=== PATIENT | male | born 1945 | race Caucasian/White ===

== ENCOUNTER → 2021-04-29 10:27 | Outpatient (BNVA) | payer MEDICARE, BC, SELFPAY | PROVIDERS: PCP Family Medicine; Referring Provider Family Medicine; Visit Provider Internal Medicine Cardiovascular Disease | DX: I48.21 Permanent atrial fibrillation (principal); I10 Essential (primary) hypertension; Z79.01 Long term (current) use of anticoagulants | CPT/HCPCS: 93005; 99202 ==

== ENCOUNTER 2021-06-15 08:41 | Outpatient (CLI) | payer MEDICARE, BC, SELFPAY ==
[2021-06-16 10:34] LABS: COVID-19 RT-PCR UVMMC Result Negative (Negative)
== END 2021-06-15 08:42 | disposition home or self-care (01) ==
LOC: LBO 08:42
PROVIDERS: PCP Family Medicine; Visit Provider Family Medicine
DX: Z20.822 Contact with and (suspected) exposure to COVID-19 (principal)
CPT/HCPCS: U0003; U0005

== ENCOUNTER 2021-06-28 14:57 | Outpatient (CLI) | payer MEDICARE, BC, SELFPAY ==
--- NOTE | 2021-06-28 14:45 | DI.RAD_ITS ---
Exam(s) XR SHOULDER RT COMPLETE 2+V EXAM: XR SHOULDER RT COMPLETE 2+V CLINICAL HISTORY: right shoulder pain TECHNIQUE: COMPARISON: No exams were available for comparison FINDINGS: Two views were obtained. There is severe loss of the cartilaginous joint space of the glenohumeral j oint. There is marked subchondral sclerosis of the adjacent bones and there are very prominent sheree nal osteophytes, particularly inferiorly. There is flattening of the articular surfaces. There are prominent hypertrophic changes at the acromioclavicular joint. There is a small calcificat ion associated with the distal supraspinatus tendon. IMPRESSION: Severe DJD of the glenohumeral joint RADIATION DOSE DELIVERED: Total DLP
== END 2021-06-28 14:58 | disposition home or self-care (01) ==
LOC: DIORS 14:57
PROVIDERS: PCP Family Medicine; Referring Provider Family Medicine; Visit Provider Student in an Organized Health Care Education/Training Program
DX: M25.511 Pain in right shoulder (principal); M19.011 Primary osteoarthritis, right shoulder; M75.101 Unspecified rotator cuff tear or rupture of right shoulder, not specified as traumatic
CPT/HCPCS: 99204; 99214; 73030

== ENCOUNTER 2021-07-25 13:26 | Outpatient (CLI) | payer MEDICARE, BC, SELFPAY ==
--- NOTE | 2021-07-25 13:15 | DI.RAD_ITS ---
Exam(s) XR HIP RT COMPLETE AP PELVIS EXAM: XR HIP RT COMPLETE AP PELVIS CLINICAL HISTORY: right knee pain. TECHNIQUE: 2D digital imaging was performed. COMPARISON: No exams were available for comparison FINDINGS: AP supine view pelvis and additional lateral the right reveal no evidence of pelvic fracture. Mild d egenerative change in noted in hips, slightly more so on the right side. Lateral view reveals margin al osteophytes right femoral head. Also small bony excrescence off anterior aspect of the femoral ne ck. No osseous lesions. Sacroiliac joints appear unremarkable IMPRESSION: DATA REPOSITORY: RADIATION DOSE DELIVERED:
--- NOTE | 2021-07-25 13:15 | DI.RAD_ITS ---
Exam(s) XR KNEE RT 4V AP,LAT,ZINA,PAT EXAM: XR KNEE RT 4V AP,LAT,ZINA,PAT CLINICAL HISTORY: right knee pain. TECHNIQUE: 2D digital imaging was performed. COMPARISON: No exams were available for comparison FINDINGS: No evidence of acute fracture nor obvious joint effusion. There is moderate narrowing of the medial compartment. Lateral and patellofemoral compartments exhibit. IMPRESSION: Degenerative narrowing of the medial compartment. No joint effusion evident. DATA REPOSITORY: RADIATION DOSE DELIVERED:
== END 2021-07-25 13:27 | disposition home or self-care (01) ==
LOC: DIORS 13:26
PROVIDERS: PCP Family Medicine; Referring Provider Family Medicine; Visit Provider Student in an Organized Health Care Education/Training Program
DX: M25.561 Pain in right knee (principal); M19.011 Primary osteoarthritis, right shoulder; M75.101 Unspecified rotator cuff tear or rupture of right shoulder, not specified as traumatic; M17.11 Unilateral primary osteoarthritis, right knee; M16.11 Unilateral primary osteoarthritis, right hip
CPT/HCPCS: 20610; 73502; 73564; J1040

== ENCOUNTER 2021-08-02 10:36 | Emergency (ER) | payer MEDICARE, BC, SELFPAY ==
[2021-08-02] VITALS (15 sets, daily range): BP systolic 94–134; BP diastolic 63–120; PULSE 60–90; RESP 13–20; TEMP 36.7; O2SAT 97–100
--- NOTE | 2021-08-02 10:30 | RT.EKG_ITS ---
APPROVED REPORT Exam: Resting ECG Reason for Exam: confusion Patient Location: E HR:75 bpm ECG Measurements Heart Rate 75 AXIS MO [id number] P [id number] QRSd 161 QRS -43 QT 379 T -49 QTc 425 Conclusion Atrial fibrillation...V-rate 58- 94, irreg A-activity RBBB and LAFB...QRSd >120mS, axis(-40,240). Afib. RBBB and LAFB. No STEMI. No change from previous EKG. I have reviewed and interpreted ECG and agree with software generated interpretation.
--- NOTE | 2021-08-02 11:29 | DI.RAD_ITS ---
Exam(s) XR CHEST 2V PA LATERAL EXAM: XR CHEST 2V PA LATERAL CLINICAL HISTORY: confusion. TECHNIQUE: 2D digital imaging was performed. COMPARISON: No exams were available for comparison FINDINGS: Heart size is normal. The mediastinum is not widened. Lungs are clear. No infiltrates nor pleural effusions. IMPRESSION: No acute pulmonary findings. DATA REPOSITORY: RADIATION DOSE DELIVERED:
--- NOTE | 2021-08-02 11:45 | DI.MRI_ITS ---
Exam(s) MR BRAIN WO EXAM: MR BRAIN WO CLINICAL HISTORY: confusion, alcoholism, worsening over the past 5 d TECHNIQUE: Multiplanar multisequence MRI of the brain was performed. Images are somewhat degraded by motion artifact. COMPARISON: No exams were available for comparison FINDINGS: CEREBRAL PARENCHYMA: There is no evidence of intracranial hemorrhage, mass effect, or shift of midline structures. There are no extra-axial fluid collections. Ventricles are not enlarged or shifted. Size of the ventricle s is commensurate with the size of the overlying cortical sulci. There is no significant focal signal abnormality in the cerebellar hemispheres nor within the zhou, m idbrain, and thalami. There is mild multifocal signal abnormality in the periventricular white matter, not associated with hemorrhage, surrounding edema, nor abnormal signal on diffusion imaging. There is no significant focal signal abnormality evident on diffusion imaging to suggest acute ischem ic event. No abnormal signal on susceptibility weighted imaging to suggest microhemorrhages. PITUITARY GLAND: No mass nor parasellar abnormality. No obvious abnormality in the cavernous sinuses. FLOW VOIDS: The expected flow void are noted. No evidence of obvious aneurysm nor obvious vascular ma lformation. PARANASAL SINUSES: The visualized paranasal sinuses appear unremarkable. No obvious finding ORBITS: No obvious findings. IMPRESSION: Mild multifocal nonspecific white matter foci which are probably aided chronic ischemic changes. No evidence of acute infarct. No hemorrhage. Involutional change consistent with this patient's age. DATA REPOSITORY:
[2021-08-02 11:48] LABS: Abs Immature Grans 0.29 10^3/uL (0.0-0.06); Absolute Basophil Count 0.06 10^3/uL (0.0-0.2); Absolute Eosinophil Count 0.03 10^3/uL (0.0-0.7); Absolute Lymphocyte Count 1.41 10^3/uL (1.2-3.4); Absolute Monocyte Count 0.67 10^3/uL (0.1-0.8); Absolute Neutrophil Count 4.86 10^3/uL (1.2-6.7); Basophils % 0.8; Eosinophils % 0.4; HCT 45.6 % (40.0-50.0); HGB 15.7 g/dL (13.5-17.5); Lymphocytes % 19.3; MCH 33.8 pg (27.0-33.0); MCHC 34.4 % (32.0-36.0); MCV 98.3 fL (80-95); MPV 9.3 fL (8.0-11.0); Monocytes % 9.2; Neutrophils % 66.3; Nucleated RBC 0 %; Platelet Count 139 10^3/uL (130-400); RBC 4.64 10^6/uL (4.36-5.78); RDW 12.4 % (11.8-14.1); RDW-SD 44.8 fL; WBC 7.32 10^3/uL (4.4-10.8)
[2021-08-02 11:49] LABS: Bilirubin Negative (Negative); Blood Negative (Negative); Clarity Clear (Clear); Glucose Negative (Negative); Ketones Negative (Negative); Leukocyte Esterase Negative (Negative); Nitrite Negative (Negative); Specific Gravity 1.015 (1.005-1.025); pH 6.5 (5-8)
[2021-08-02 11:54] LABS: Ammonia 20 umol/L (11-32)
--- NOTE | 2021-08-02 12:00 | ED.GENADUL_ITS ---
Discharge Plan Disposition Patient Disposition: HOME Condition: Stable Discharge Details Clinical Impression: Impaired cognition Primary Care Provider: Jeyson Alberts ED Provider: Wanda Curtis Home Meds and New Rx's Prescriptions: New baclofen 5 mg tablet 5 mg PO TID Qty: 15 0RF metoclopramide HCl [Reglan] 10 mg tablet 10 mg PO Q6H PRNQty: 10 0RF Continued metoprolol succinate 200 mg tablet extended release 24 hr 200 mg PO QHS 0RF fluticasone propionate 50 mcg/actuation spray,suspension 2 spray intranasal DAILY PRN0RF Rx Instructions: administer into each nostril simvastatin 20 MG tablet 20 mg PO DAILY 0RF ramipril 2.5 MG capsule 2.5 mg PO DAILY 0RF multivitamin 1 EACH capsule 1 ea PO DAILY 0RF albuterol sulfate [ProAir HFA] 8.5 GM HFA aerosol inhaler 2 puff Inhalation DIRECTED 0RF Label Comments: 06/09/14 Pt states only prn. PG baclofen 10 mg tablet 10 mg PO TID PRN0RF Label Comments: TK 1 T PO TID PRN FOR HICCUPS. IF NO EFFECT INCREASE TO 2 TID MAXIUMUM Eliquis 5 MG tablet 5 mg PO BID Qty: 60 0RF Discharge Instructions Additional Instructions: ?Breath holding for 5 to 10 seconds (or as tolerated). ?Performing Valsalva maneuver, holding for five second ?Sipping on or gargling with very cold water. ?Biting into a lemon. ?Pulling on the tongue. ?Swallowing a teaspoon of dry sugar. ?Pressing gently but firmly on the eyeballs. ?While sitting, pulling the knees up to the chest (or leaning forward to compress the chest); hold the position for 30 seconds to one minute if possible. ?Drinking water through a rigid tube with a valve that requires significant suction effort (ie, a forced inspiratory suction and swallow tool [FISST]), which contracts the diaphragm by activating the phrenic nerve, followed by swallowing of water which activates the vagus nerve. The simultaneous activation of the two nerves is believed to be the mechanism responsible for terminating hiccups Please follow-up with Dr. Alberts Take Reglan, 10 mg every 8 hours as needed for hiccups that are uncontrolled with baclofen, you may take 5 to 10 mg every 8 hours as needed for hiccups Stay hydrated Follow-up with your PCP this week and return earlier should you have new or worsening complaints Referrals: Jeyson Alberts [Primary Care Provider] - Discharge Data Discharge Date/Time-TO BE ENTERED AT DEPARTURE: 08/02/21 13:56 Medical Decision Making Patient alert, oriented, of decisional capacity, at baseline mentation per his who is in the room Given patient's past medical history I ordered MRI of the brain which did not show acute abnormality, patient symptoms have been progressive over the past several years worsening in the past week, there is no evidence of obvious acute process on today's evaluation and patient has care with his he feels comfortable discharge home He is instructed to follow-up with his primary care physician in the outpatient setting and to return emergently should he have new or worsening complaints He did reoccurrence of his hip on today's presentation but they were alleviated nicely after some IV Reglan He has baclofen at home, he is supplied with Reglan and baclofen instructed not to take it within 8 hours of each other He will try 1 or 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 but I think these are likely exacerbating his baseline cognitive function Return precautions discussed and patient expressed understanding All conversations had in presence of patient's and patient both are agreeable to follow-up plan with the PCP in the outpatient setting in early return should he have new or worsening complaints There is established with a neurologist at [facility], during her to follow-up with this provider as well He is discharged home in stable condition with stable vitals Medical Records Medical records reviewed: Yes I reviewed the patient's medical records. Lab Data Lab results reviewed: Yes I reviewed the patient's lab results. HPI General Date/Time Provider Initiated Documentation: 08/02/21 10:37 . HPI Narrative: This 76-year-old male with history of atrial fibrillation, mitral regurgitation, impaired cognition, hyperlipidemia, hypertension presents with reports of episode of hallucination 1 week ago and some intermittent confusion over the course of the past several weeks. Denies any head injury. Denies chest pain or shortness of breath. Denies any dizziness or weakness. States that he has been diagnosed with Alzheimer's dementia with a recent diagnosis but not on any new medications. This is complicated by the fact that patient has had recurrence of his hiccups for treatment taking baclofen over the course of the past several days. He states that he has been hiccuping almost 24 hours a day but incidentally notes C cup have resolved upon entering the emergency room. He denies any falls or injuries. He denies palpitations. He denies any additional complaints this time. Denies any fever or chills. Denies dysuria or frequency. Related Data Home Medications Medication Instructions Recorded Confirmed multivitamin 1 ea PO DAILY 11/18/12 08/02/21 ramipril 2.5 mg capsule 2.5 mg PO DAILY 11/18/12 08/02/21 simvastatin 20 mg tablet 20 mg PO DAILY 11/18/12 08/02/21 albuterol sulfate 90 mcg/actuation 2 puff INHALATION DIRECTED 05/22/14 08/02/21 aerosol inhaler (ProAir HFA) apixaban 5 mg tablet (Eliquis) 5 mg PO BID #60 tab 05/02/17 08/02/21 fluticasone propionate 50 2 spray INTRANASAL DAILY PRN 03/24/21 08/02/21 mcg/actuation nasal spray,suspension metoprolol succinate 200 mg 200 mg PO QHS tab 07/21/21 08/02/21 tablet,extended release 24 hr baclofen 10 mg tablet 10 mg PO TID PRN 08/02/21 08/02/21 baclofen 5 mg tablet 5 mg PO TID #15 tab 08/02/21 metoclopramide HCl 10 mg tablet 10 mg PO Q6H PRN #10 tab 08/02/21 (Reglan) Previous Rx's Medication Instructions Recorded apixaban 5 mg tablet (Eliquis) 5 mg PO BID #60 tab 05/02/17 baclofen 5 mg tablet 5 mg PO TID #15 tab 08/02/21 metoclopramide HCl 10 mg tablet 10 mg PO Q6H PRN #10 tab 08/02/21 (Reglan) Allergies Allergy/AdvReac Type Severity Reaction Status Date / Time tree and shrub pollen Allergy Intermediate Verified 08/02/21 10:51 General Stated Complaint: AMS/LOC HEBER: 2 Review of Systems All systems reviewed & are unremarkable except as noted in HPI and below PFSH All Active Problems (Updated 08/02/21 @ 13:50 by LEE Atwood) Arthritis of right hip (Acute) Arthritis of right knee (Acute) Rotator cuff tear, right (Acute) Arthritis of right shoulder region (Acute) Inflammatory disease of liver (Acute) Asthma (Chronic) Afib (Chronic) Mitral regurgitation (Chronic) Impaired cognition (Acute) Leukopenia (Acute) Hyperlipidemia (Acute) HTN (hypertension) with goal to be determined (Acute) Hypothyroidism, unspecified (Chronic) Tinnitus (Acute) Abnormal auditory perception (Acute) Sensorineural hearing loss of both ears (Acute) Medical History History of cardioversion 05/29/17 Malignant tumor of prostate Rectal hemorrhage Surgical History H/O prostatectomy 06/18/2011 Family History Paternal Grandmother Heart disease Paternal Grandfather Heart disease Father Heart disease Alcohol use disorder Alzheimer disease Brother Cancer malignant tumor of testis Social History Smoking/Tobacco Use Status: Never Smoking risk assessment performed?: Yes Alcohol Intake: current Alcohol Intake frequency: 0-2 drinks per day Alcohol type: hard liquor Drug use: Never Household members: spouse Current gender identity: male What is your relationship status?: Panel score (0-1 are the most socially isolated patients): 1 What type of physical activity do you participate in: walking, bicycling and weight lifting Do you feel safe at home: Yes Do you feel safe in your relationship?: Yes Exam Const General: cooperative, comfortable and no acute distress HENMT Head: normal to inspection Other: Moist membranes, uvula midline Eyes Pupils: PERRL Other: Extraocular muscles intact Neck Other: No carotid bruit Resp Effort & Inspection: normal respiratory effort Auscultation: clear to auscultation bilaterally Cardio Rate: regular rate Rhythm: regular rhythm GI Inspection: normal to inspection Skin General skin exam: no rashes or lesions noted Neuro General: patient alert, patient oriented x3 and CN's II-XI intact bilaterally Cranial Nerves: PERRL and tongue midline Cognition: normal cognition Speech: speech normal Gait: normal gait Motor: muscle tone normal throughout, strength 5/5 throughout and no pronator drift Sensory Exam: no sensory deficits noted Other: Negative [id number], negative heel may, negative pronator drift Extrem Other: Ambulatory with steady gait Distal pulses intact Course Vital Signs Vital signs: Vital Signs Temperature 36.7 C 08/02/21 10:44 Pulse 84 08/02/21 10:44 Respiratory Rate 19 08/02/21 10:44 Blood Pressure 110/70 08/02/21 10:44 Pulse Oximetry 97 08/02/21 10:44 Temperature 36.7 C 08/02/21 10:44 Temperature Source Temporal Artery Scan 08/02/21 10:44 Pulse 77 08/02/21 11:46 Pulse 72 08/02/21 11:50 Respiratory Rate 18 08/02/21 11:50 Respiratory Effort Non-Labored 08/02/21 10:58 Respiratory Depth Normal 08/02/21 10:58 Respiratory Pattern Normal 08/02/21 10:58 Blood Pressure 94/63 L 08/02/21 11:46 Blood Pressure Mean 71 08/02/21 11:46 Blood Pressure Position Supine 08/02/21 10:44 Pulse Oximetry 98 08/02/21 11:50 Oxygen Delivery Method Room Air 08/02/21 10:44 Oxygen Flow Rate 0 08/02/21 10:44 Pain Level 0 08/02/21 10:44 Lab/Test Results Lab/Test Results: Laboratory Tests Range/Units 08/02/21 08/02/21 08/02/21 10:55 11:35 11:35 WBC (4.4-10.8) 10^3/uL 7.32 RBC (4.36-5.78) 10^6/uL 4.64 Hgb (13.5-17.5) g/dL 15.7 Hct (40.0-50.0) % 45.6 MCV (80-95) fL 98.3 H MCH (27.0-33.0) pg 33.8 H MCHC (32.0-36.0) % 34.4 RDW (11.8-14.1) % 12.4 Plt Count (130-400) 10^3/uL 139 MPV (8.0-11.0) fL 9.3 Immature Gran % 4.0 Neutrophils % 66.3 Lymphocytes % 19.3 Monocytes % 9.2 Eosinophils % 0.4 Basophils % 0.8 Nucleated RBC % % 0 Absolute Neutrophils (1.2-6.7) 10^3/uL 4.86 Absolute Lymphocytes (1.2-3.4) 10^3/uL 1.41 Absolute Monocytes (0.1-0.8) 10^3/uL 0.67 Absolute Eosinophils (0.0-0.7) 10^3/uL 0.03 Absolute Basophils (0.0-0.2) 10^3/uL 0.06 Ammonia (11-32) umol/L 20 Urine Color (Yellow) Yellow Urine Clarity (Clear) Clear Urine pH (5-8) 6.5 Ur Specific [place] (1.005-1.025) 1.015 Urine Protein (Negative) mg/dL Negative Urine Ketones (Negative) mg/dL Negative Urine Blood (Negative) Negative Urine Nitrite (Negative) Negative Urine Bilirubin (Negative) Negative Urine Urobilinogen (Up TO 0.2) EU/dL 1.0 H Ur Leukocyte Esterase (Negative) Negative Urine Glucose (Negative) mg/dL Negative PAWSS Have you Been Recently Intoxicated or Drunk Within the Last 30 days?: No Have you Ever Experienced Previous Episodes of Alcohol Withdrawal?: No Have you ever Experienced Withdrawal Seizures?: No Have you ever Experienced Delirium Tremens(DT)s?: No Have you ever undergone Alcohol Rehabilitation Treatment (i.e, inpt ot outpatient treatment programs)?: No Have you ever Experienced Blackouts?: No Have you ever Combined Alcohol with other Downers within the last 90 days?: No Have you ever Combined Alcohol with any other Substance of Abuse during the last 90 days?: No Positive Blood Alcohol level on Presentation? [PCS.BAL]: No Evidence of Increased Autonomic Activity (i.e. HR>120, tremor, sweating, agitation, nausea)?: No Result: 0
[2021-08-02 12:12] LABS: ALT 26 U/L (16-63); AST 16 U/L (15-37); Albumin 4.3 g/dL (3.4-5.0); Alkaline Phosphatase 48 U/L (46-116); BUN 21 mg/dL (7-18); Bilirubin, Total 1.8 mg/dL (0.2-1.0); Calcium 8.9 mg/dL (8.5-10.1); Chloride 103 mmol/L (98-107); Glucose 116 mg/dL (74-106); Magnesium 2.3 mg/dL (1.8-2.4); Potassium 3.9 mmol/L (3.5-5.1); Sodium 140 mmol/L (136-145); TSH (W/Ref FT4) 2.88 uIU/mL (0.36-3.74); Total Protein 6.9 g/dL (6.4-8.2); Troponin I < 50 ng/L (<or=60)
[2021-08-02] MEDS: Metoclopramide 10 MG/2 ML VIAL 5 MG IVP (13:04)
--- NOTE | 2021-08-03 11:37 | NUR.NOTE ---
Nursing Note: Prescriptions called in to [facility]. Wanda Curtis aware. Jany Joseph
== END 2021-08-02 13:56 | disposition home or self-care (01) ==
PROVIDERS: Emergency Provider Physician Assistant; PCP Family Medicine
DX: R41.81 Age-related cognitive decline (principal); R06.6 Hiccough; R41.0 Disorientation, unspecified; F10.20 Alcohol dependence, uncomplicated
CPT/HCPCS: 36415; 80053; 93005; 96374; 99285; 70551; 71046; 81003; 82140; 83735; 84443; 84484; 85025; 93010; 99284; J2765

== ENCOUNTER 2021-08-26 03:06 | Outpatient (CLI) | payer MEDICARE, BC, SELFPAY ==
--- NOTE | 2021-08-26 07:45 | DI.CT_ITS ---
Exam(s) CT UPPER EXTREMITY RT WO EXAM: CT UPPER EXTREMITY RT WO CLINICAL HISTORY: Surgery planning,arthritis rt glenohumeral joint,m19.011 TECHNIQUE: Imaging Protocol: Axial computed tomography images with coronal and sagittal reformatted images were created and reviewed. CONTRAST MATERIAL: None COMPARISON: CR XR SHOULDER RT COMPLETE 2+V from 06/28/2021 FINDINGS: OSSEOUS: There are advanced osteoarthritic degenerative changes in the right glenohumeral joint inclu ding advanced narrowing of the joint space and a barrow-type osteophyte on the inferior articular surf connie of the humeral head. Also osteophyte and degenerative subarticular cysts in the osseous glenoid. There is partial dehiscence of anterior cortex of the osseous glenoid at the level of the dominant degenerative subarticular cyst at this level which measures approximately 9 x 8 millimeters. This do es not have the appearance of an ominous osseous lesion. Coracoid process unremarkable. There is a 4 x 3 millimeter osteophytic density a immediately above the greater tuberosity of the hum eral head consistent with calcific tendinitis-bursitis. There are only mild degenerative changes in the AC joint although there does appear to be some downgoing bone on the clavicular side of this join t causing some impingement. No evidence of os acromiale. There is a small joint effusion. This ext ends into the subcoracoid region intimately related to the subscapularis. There are no obvious loose intra-articular bodies in the inferior recess nor elsewhere in the numeral joint space. Adjacent right lung: No significant nodules demonstrate. IMPRESSION: Advanced osteoarthritic degenerative changes in right shoulder glenohumeral joint, as described above . RADIATION DOSE DELIVERED: 676.47mGy.cm Total DLP DATA REPOSITORY: All CT scans at this facility are submitted to the National Radiology Data Registry (NRDR) Dose Index Registry (DIR) with the [employer] ([employer]). RADIATION OPTIMIZATION: All CT scans at this facility use at least one of these dose optimization te chniques: automated exposure control; mA and/or kV adjustment per patient size (includes targeted exa ms where dose is matched to clinical indication); or iterative reconstruction.
== END 2021-08-26 03:26 ==
PROVIDERS: PCP Family Medicine; Visit Provider Student in an Organized Health Care Education/Training Program
DX: M19.011 Primary osteoarthritis, right shoulder (principal)
CPT/HCPCS: 73200

== ENCOUNTER → 2021-08-30 14:46 | Outpatient (BNVA) | payer MEDICARE, BC, SELFPAY | PROVIDERS: PCP Family Medicine; Referring Provider Family Medicine; Visit Provider Student in an Organized Health Care Education/Training Program | DX: M75.101 Unspecified rotator cuff tear or rupture of right shoulder, not specified as traumatic (principal); M19.011 Primary osteoarthritis, right shoulder | CPT/HCPCS: 99214 ==

== ENCOUNTER 2021-09-07 01:18 | Outpatient (CLI) | payer MEDICARE, BC, SELFPAY ==
--- NOTE | 2021-09-07 09:07 | DI.CT_ITS ---
Exam(s) CT ABDOMEN PELVIS WO/W EXAM: CT ABDOMEN PELVIS WO/W CLINICAL HISTORY: MICROSCOPIC HEMATURIA, R31.29, HX STONES/BLADDER ULCERATION. TECHNIQUE: Imaging Protocol: Axial computed tomography images with coronal and sagittal reformatted images were created and reviewed CONTRAST MATERIAL: Intravenous: Omnipaque 100cc Oral: None COMPARISON: CT ABD PELVIS WITH CONTRAST from 09/08/2010 FINDINGS: VISUALIZED LUNG BASES: No nodules nor pleural effusions evident. ABDOMEN: There is no ascites. LIVER: There are no ominous focal hepatic lesions evident. Tiny 3 millimeters cyst is noted in the r ight hepatic lobe. No dilatation of intrahepatic ducts. GALLBLADDER/BILIARY: No obvious gallbladder pathology. CBD is not dilated. PANCREAS: No evidence of pancreatic mass nor dilatation of the pancreatic duct. SPLEEN: Spleen size upper normal. No intrasplenic lesions. Splenic and portal veins are patent. ADRENALS: There are no significant adrenal masses. KIDNEYS:There are multiple calculi noted in both kidneys.. These all measure less than 6 millimeters size. No staghorn calculus. There is a single ureter on each side. No calculi evident in the uret ers nor within the urinary bladder. Small sub cm cyst in the lateral cortex of the right kidney. No solid renal masses.. ABDOMINAL AORTA: Abdominal aorta is not enlarged. LYMPH NODES:There is no retroperitoneal nor paraaortic adenopathy. ABDOMINAL WALL: No evidence of significant anterior abdominal wall nor inguinal hernia. GI: There is extensive diverticulosis of the colon. There is very extensive diverticulosis of the si gmoid. No obvious acute diverticulitis. PELVIS: GI: No evidence of appendicitis.Extensive sigmoid diverticulosis. LYMPH NODES: There is no intrapelvic nor inguinal adenopathy. REPRODUCTIVE: Prostate is small and possibly surgically absent (no clips). Seminal vesicles unremark able. URINARY BLADDER: No calculi nor obvious masses evident OSSEOUS: No osseous lesions. No fractures. Advanced disc space narrowing L2-3 level. IMPRESSION: 1. There are numerous small calculi in both kidneys. There are no calculi in the solitary bilateral ureters nor within the urinary bladder and no evidence of obvious bladder mass. 2. Prostate is either smaller surgically absent (there are no surgical clips). 3. Extensive colonic diverticulosis throughout the colon, most extensive in the sigmoid. Although th ere is no obvious acute diverticulitis, please note that given the extensive involvement a subtle wendy e of diverticulitis can be potentially missed. 4. RADIATION DOSE DELIVERED: 1,813.31mGy.cm Total DLP DATA REPOSITORY: All CT scans at this facility are submitted to the National Radiology Data Registry (NRDR) Dose Index Registry (DIR) with the [employer] ([employer]). RADIATION OPTIMIZATION: All CT scans at this facility use at least one of these dose optimization te chniques: automated exposure control; mA and/or kV adjustment per patient size (includes targeted exa ms where dose is matched to clinical indication); or iterative reconstruction.
[2021-09-07] MEDS: Omnipaque 350 MG/ML 100 ML BTL IJ (09:28)
== END 2021-09-07 01:38 ==
PROVIDERS: PCP Family Medicine; Visit Provider Urology
DX: R31.29 Other microscopic hematuria (principal); N20.0 Calculus of kidney; K57.30 Diverticulosis of large intestine without perforation or abscess without bleeding
CPT/HCPCS: 74178; J3490

== ENCOUNTER → 2021-11-01 10:04 | Outpatient (BNVA) | payer MEDICARE, BC, SELFPAY | PROVIDERS: PCP Family Medicine; Referring Provider Family Medicine; Visit Provider Student in an Organized Health Care Education/Training Program | DX: M75.101 Unspecified rotator cuff tear or rupture of right shoulder, not specified as traumatic (principal) | CPT/HCPCS: 99214 ==

== ENCOUNTER → 2021-12-14 09:00 | Outpatient (BNVA) | payer MEDICARE, BC, SELFPAY | PROVIDERS: PCP Family Medicine; Referring Provider Family Medicine; Visit Provider Physician Assistant | DX: Z01.818 Encounter for other preprocedural examination (principal); M75.101 Unspecified rotator cuff tear or rupture of right shoulder, not specified as traumatic ==

== ENCOUNTER 2021-12-20 02:54 | Outpatient (CLI) | payer MEDICARE, BC, SELFPAY ==
[2021-12-20 11:24] LABS: Source Nasal/Nares
[2021-12-20 16:45] LABS: COVID-19 PCR Negative (Negative)
== END 2021-12-20 02:55 | disposition home or self-care (01) ==
LOC: LBO 02:54
PROVIDERS: PCP Family Medicine; Visit Provider Student in an Organized Health Care Education/Training Program
DX: Z20.822 Contact with and (suspected) exposure to COVID-19 (principal); Z01.818 Encounter for other preprocedural examination
CPT/HCPCS: 87635

== ENCOUNTER → 2021-12-22 02:18 | Outpatient (CLI) | payer MEDICARE, BC, SELFPAY ==
--- NOTE | 2021-12-22 07:30 | DI.US_ITS ---
APPROVED REPORT EXAM: Comprehensive 2D, Doppler, and color-flow Echocardiogram Patient Location: Out-Patient Nail Artist: Judit Brown RDCS (AE) Indications: Tricuspid regurgitation Other Information Study Quality: Adequate. Technically limited study due to body habitus. Conclusion Normal left ventricular wall thickness and chamber size. Estimated ejection fraction is 40%. There is moderate global hypokinesis Right ventricle is moderately dilated. The right atrium is moderately dilated. Left atrial size is normal The aortic valve is trileaflet and mildly sclerotic with trace regurgitation Normal mitral valve with moderate regurgitation Normal tricuspid valve with moderate to severe regurgitation. Estimated right ventricular systolic p ressure is 31 mmHg Normal pulmonic valve with mild to moderate regurgitation Mildly dilated ascending aorta measuring 3.52 cm Wall motion Left Ventricle The left ventricle is normal size. Left ventricular systolic function is moderately decreased. There is normal left ventricular wall thickness. There is global hypokinesis of the left ventricle. There i s no ventricular septal defect visualized. LVEF is 40%. Right Ventricle Right ventricle is moderately dilated. Right ventricular systolic function is grossly normal. The RVS P is 30.9 mmHg. Atria The left atrium size is normal. Right atrium is moderately dilated. The interatrial septum is intact with no evidence for an atrial septal defect. Aortic Valve The Aortic valve is mildly sclerotic. Aortic valve is trileaflet. There is no aortic valvular stenosi s. Trace aortic regurgitation. Mitral Valve The mitral valve is normal in structure. No evidence of mitral valve stenosis. Moderate mitral regurg itation. Tricuspid Valve The tricuspid valve is normal in structure. There is no tricuspid valve stenosis. Moderate to severe tricuspid regurgitation. Pulmonic Valve The pulmonary valve is normal in structure. There is no pulmonic valvular stenosis. Mild to moderate pulmonic regurgitation. Great Vessels The aortic root is normal in size. The ascending aorta is mildly dilated. Aortic arch is not well vis ualized. IVC is normal in size and collapses >50% with inspiration. Pericardium Trace pericardial effusion. 2D Dimensions IVSD d PLAX 0.83 cm M: 0.6-1.2 LV Vol A2C d MOD 76.4 mL LVPW d PLAX 0.88 cm M: 0.6 - 1.2 LV Vol A4C d MOD 84.9 mL LVID d PLAX 5.34 cm M: 4.2 - 5.8 LA vol/ BSA A2C s A-L 21.0 mL/m2 LVDs 4.40 cm M: 2.5 - 4.0 LA vol/ BSA A4C s A-L 36.0 mL/m2 Ao Root d 3.15 cm M: 3.1 - 3.7 LA Vol/ BSA Biplane s A-L 32.1 mL/m2 RA Area A4C 20.77 cm2 LA Area A4C s MOD 22.18 cm2 RA Vol/ BSA A4C s A-L 36.5 mL/m2 LA Area A2C s MOD 14.50 cm2 Ao Asc Diam d 3.52 cm M: 2.6 - 3.4 LV EF A4C MOD 38.4 % LV EF Teichholz 35.4 % LV EF A2C MOD 40.4 % LVEF (Bagley's) 37.67 % M: 52 - 72 LV EF Biplane MOD 37.7 % LV Volume 63.53 mL M: 62 - 150 SV 30.55 mL LV Volume Index 36.09 mL/m2 M: 34 - 74 SV Index 17.32 mL/m2 LV Vol Biplane MOD 81.1 mL FS 17.10 % M-Mode TAPSE 1.65 cm (M/F) >1.7 LV Diastology MV E' medial 0.055 (>0.07 m/s) MV E Vmax 0.73 (0.4-1.3 m/s) LV E/e MED 13.15 (<14) MV E' lateral 0.106 (>0.1 m/s) LV E/e LAT 6.85 (<14) MV E/E' medial 13.18 MV E/E' lateral 6.89 Aortic Valve LVOT Area 3.65 cm2 AoV Area Vmax 2.44 cm2 LVOT Vmax 0.73 m/s AoV Area/ BSA (Vmax) 1.38 cm2/m2 LVOT Mean Dawson. 0.47 m/s BRIAN Mean Dawson. 2.23 cm2 LVOT Peak Grad 2.1 mmHg BRIAN Mean Dawson. Index 1.26 cm2/m2 LVOT Mean Grad 1.0 mmHg LVOT VTI 0.123 m LVOT Diam s 2.15 cm AoV Vmax 1.09 m/s Velocity Ratio 0.66 AoV Mean Dawson. 0.77 m/s AoV Peak Grad 4.7 mmHg LVOT SV 44.77 mL AoV Mean Grad 2.6 mmHg AoV VTI 0.201 m AoV Area VTI 2.23 cm2 AoV Area/ BSA (VTI) 1.27 cm/m2 Mitral Valve MV DT 187 (160-240 msec) MR Vmax 4.60 m/s MV PHT 54 msec MR VTI 1.456 m MV Area PHT 4.06 cm2 MR Peak Grad 84.5 mmHg MV VTI 0.234 m MR Mean Grad 53.4 mmHg MV VTI Annulus 0.248 m MR PISA Radius 0.47 cm MV Area VTI 2.05 (4.0-6.0 cm2) MR EROA 0.11 cm2 MR Aliasing Velocity 0.35 m/s MR PISA 1.41 cm2 Pulmonary Valve PV Vmax 0.66 (0.5-1.5 m/s) RVOT Peak Gr. 1.10 mmHg PV Peak Grad 1.8 mmHg RVOT Mean Gr. 0.50 mmHg PV Mean Grad 1.0 mmHg RVOT VTI 0.112 m PV VTI 0.139 m RVOT Vmax 0.53 m/s Tricuspid Valve TR Peak Grad 27.8 mmHg TR Vmax 2.64 m/s RA Pressure 3.00 mmHg RVSP (TR) 30.9 mmHg
== END ==
PROVIDERS: PCP Family Medicine; Visit Provider Student in an Organized Health Care Education/Training Program
DX: I07.1 Rheumatic tricuspid insufficiency (principal)
CPT/HCPCS: 93306

== ENCOUNTER 2021-12-22 11:07 | Inpatient (IN) | payer MEDICARE, BC, SELFPAY ==
[2021-12-22] VITALS (16 sets, daily range): BP systolic 76–145; BP diastolic 47–104; PULSE 55–101; RESP 12–22; TEMP 34.6–36.7; O2SAT 95–100; BMI 22.9
--- NOTE | 2021-12-22 12:30 | W.ANESPRE ---
General Info Date of Service Date Performed: 12/22/21 Height: 5 ft 7 in Weight: 66.4 kg Body Mass Index (BMI): 22.9 Surgical Procedure: Operation Date: 12/22/21 13:40 Proposed Procedure Side Surgeon p Reverse Shoulder Total Arthroplasty, Bicep Tenodesis and any other indicated procedures Right Praful Duenas MD Meds Allergies and Home Medications Allergies Allergy/AdvReac Type Severity Reaction Status Date / Time tree and shrub pollen Allergy Intermediate Verified 12/22/21 11:59 Home Medication Medication Instructions Recorded multivitamin 1 ea PO DAILY 11/18/12 ramipril 2.5 mg capsule 2.5 mg PO DAILY 11/18/12 simvastatin 20 mg tablet 20 mg PO DAILY 11/18/12 albuterol sulfate 90 mcg/actuation 2 puff inhalation DIRECTED 05/22/14 aerosol inhaler (ProAir HFA) apixaban 5 mg tablet (Eliquis) 5 mg PO BID #60 tabs 05/02/17 fluticasone propionate 50 2 spray intranasal DAILY PRN 03/24/21 mcg/actuation nasal spray,suspension metoprolol succinate 200 mg 100 mg PO BID 12/14/21 tablet,extended release 24 hr PFSH Active Problems Active Problems: Problem Status Onset Code Arthritis of right hip M16.11 Arthritis of right knee M17.11 Rotator cuff tear, right M75.101 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 Impaired cognition R41.89 Medical History Medical History Abnormal auditory perception Afib Asthma History of cardioversion 05/29/17 HTN (hypertension) with goal to be determined Hyperlipidemia Hypothyroidism, unspecified Inflammatory disease of liver Leukopenia Malignant tumor of prostate Mitral regurgitation Rectal hemorrhage Sensorineural hearing loss of both ears Tinnitus Surgical History Surgical History H/O prostatectomy 06/18/2011 Status post colonoscopy Status post endoscopy Status post eye surgery No further details provided Status post tonsillectomy Tobacco Smoking/Tobacco Use Status: Never Alcohol Alcohol Intake: current Alcohol intake frequency: 0-2 drinks per day Alcohol type: hard liquor Substance Use Substance use: Never Substance use type: does not use Vital Signs and Lab Results Vital Signs Most Recent Vital Signs in EMR: Most Recent Vital Signs Temp Pulse Resp BP Pulse Ox 36.4 C L 84 16 120/95 H 98 12/22/21 12:14 12/22/21 12:14 12/22/21 12:14 12/22/21 12:14 12/22/21 12:14 Lab Results Blood Type / Crossmatch: No Data to Display Complete Blood Count: No Data to Display Complete Metabolic Panel: No Data to Display Liver Function Panel: No Data to Display Coagulation Panel: No Data to Display Cardiac Panel: No Data to Display Arterial Blood Gas: No Data to Display Venous Blood Gas: No Data to Display Pancreas Panel: No Data to Display Thyroid Panel: No Data to Display Infectious Disease: Coronavirus (COVID-19)(PCR) Negative (Negative) 12/20/21 10:08 Coronavirus 2019 Source Nasal/Nares 12/20/21 10:08 Blood Cultures: No Data to Display Toxicology Panel: No Data to Display Anesthesia Assessment and Plan Anesthesia History Personal History: No History of Anesthesia Complications Family History: No Family History of Anesthesia Complications Exercise Tolerance Exercise Tolerance: Metabolic Equivalents>4 Pertinent Negatives Pertinent Negatives: No Symptoms of GERD, No Major Cardiovascular Symptoms or Complaints (Atrial fibrillation, TR) and No Major Pulmonary Symptoms or Complaints Cardiac & Pulmonary Exam Cardiac Exam: Other (Irregular ) Pulmonary Exam: Clear Bilateral Breath Sounds Implantable Cardiac Device Does patient have a Pacemaker or an ICD?: No Airway Exam Known Difficult Airway: No Mallampati Class: 1 Mouth Opening: Normal (> 3cm) Thyromental Distance: Greater than 3 cm Facial Hair: Full Engel Neck Range of Motion: Full ROM Neck Circumference: Normal Teeth Condition: Normal Dentition Airway Comments: Top front tooth broken left back top broken ASA Classification ASA Score: ASA 2 Emergency Case?: No NPO Status NPO Status: NPO Clears >2 hours, Solids >8 hours Anesthesia Plan Resuscitation Status: Full Code Anesthesia Technique: General Anesthesia Airway Planned: Endotracheal Tube Pain Management: Surgeon and patient request nerve block Monitors Used: Standard Monitors
--- NOTE | 2021-12-22 12:45 | DI.RAD_ITS ---
Exam(s) XR SHOULDER RT COMPLETE 2+V EXAM: XR SHOULDER RT COMPLETE 2+V CLINICAL HISTORY: Portable in PACU postop. TECHNIQUE: 2D digital imaging was performed. COMPARISON: CR XR SHOULDER RT COMPLETE 2+V from 06/28/2021 FINDINGS: 3 views Postop reveal satisfactory position alignment components of the newly placed reverse prosthesis right shoulder. Nor loosening. IMPRESSION: DATA REPOSITORY: RADIATION DOSE DELIVERED:
[2021-12-22] MEDS: Lactated Ringers 1,000 ML 100 ML IV ×3 (12:50→18:18)
[2021-12-22] MEDS: ceFAZolin 2 GM/50 ML BAG IVPB (12:50)
[2021-12-22] MEDS: Bupivacaine 0.5% Pres-Free W/EPI 10 ML VIAL (13:52)
--- NOTE | 2021-12-22 14:01 | W.ANESNERVE ---
Nerve Block Single Injection Procedure Date and Time Date Performed: 12/22/21 Procedure Start: 12:40 Location Where Procedure Performed Procedure Location: Day Surgery Unit Reason Performed: Postoperative Analgesia Requesting Provider: Praful Duenas Timeout Performed Timeout Performed: Yes Monitoring Used ECG, Blood Pressure and SpO2 Sterility Sterility: Hand Hygiene, Surgical Cap, Surgical Mask, Sterile Gloves, Eye Protection and Chlorhexidine Sedation Given During Procedure Sedation Given (Indicate Dose Given): Versed IV Dose:: 2 mg Patient Mental Status Patient Mental Status: Sedate with meaningful communication Nerve Block 1st Nerve Block: Laterality: Right Block Type: Interscalene Needle / Catheter Used: 100mm SonoPlex II Local Anesthetic Bolus (Indicate Dose Given): Lidocaine used for local infiltration of skin, Injected in 3-5ml increments after negative blood aspiration, Bupivacaine 0.5% Dose:: 10 cc and Exparel Dose:: 10cc Additives (Indicate Dose Given): None Ultrasound: Sterile probe cover and gel used Ultrasound Image Saved?: Yes Nerve Stimulator: Not Used Paresthesia: None Post Procedure Pain score (0-10): 0 Procedure Tolerated: No Complications and Patient tolerated well Procedure Outcome: Successful Performed By: Jeyson Monteiro
--- NOTE | 2021-12-22 17:38 | ROE_ITS ---
Date of service: 12/22/21 Time of Service: 15:00 Operative Note Operative Note DATE OF PROCEDURE: 12/22/21 PRE-OP DIAGNOSIS: Right: 1. End-stage glenohumeral arthritis 2. Long head of the biceps tendinopathy POST-OP DIAGNOSIS: same PROCEDURE: Right: 1. Reverse total shoulder arthroplasty, CPT # 462[address] 2. Open biceps tenodesis, CPT # 71692 The regional administrative assistant was medically required as this procedure involves retraction, protection of neurovascular structures, and manipulation of multiple instruments and implants at the same time, which cannot be done without a skilled regional administrative assistant. SURGEON: Praful Duenas SENIOR LEAD DEVELOPER: Meredith Riley ANESTHESIA TYPE: Local By Surgeon, General LMA/ETT and Primary Nerve Block Refer to Anesthesia Record ESTIMATED BLOOD LOSS: 150 COMPLICATIONS: None Patient was transported to: PACU Implants: [employer] modular glenoid system baseplate 24 mm, 10 degree full augment [employer] modular glenoid system central post 25 mm [employer] modular glenoid system peripheral locking screws 20 mm inferior, 36 mm superior, 20 mm posterior, 24 mm anterior [employer] modular glenoid system glenosphere 42 +4 mm lateralized [employer] humeral stem 135 degrees size 8 [employer] suture cup size 39 neutral [employer] humeral insert size 39 +6 / 42 mm combo insert Indications: Please see complete medical record for details. Findings: Significant long head biceps tenosynovitis and glenohumeral arthritis. Largely intact rotator cuff. Procedure Description: In the operating room, general anesthesia was induced. The patient was positioned beachchair on the operating room table. All bony prominences were well-padded. Preoperative antibiotics were administered. The shoulder was prepped and draped in the usual sterile fashion for shoulder arthroplasty. The correct patient, procedure, and side of the procedure were all verified prior to incision. The deltopectoral approach was taken to the anterior shoulder. Care was taken to bluntly dissect the interval between the deltoid and pectoralis major muscles. No major cephalic vein was identified, but the usual location and fat stripe was used for the approach. Subdeltoid space and conjoined tendon were freed of adhesions. The long head of the biceps tendon was identified just lateral to the lesser tuberosity. The uppermost margin of the pectoralis major tendon was released from the proximal humerus. The long head of the biceps tendon was tenodesed in situ using SutureTape in a [id number] fashion securing it superior margin the pectoralis major tendon. The biceps tendon was amputated and followed proximally to identify the rotator interval. A subscapularis peel was performed taking care to release the entire tendon in a full-thickness fashion from superior to inferior and lateral to medial while bringing the arm gradually into external rotation. Care was taken to avoid the axillary nerve by only working on the bone inferiorly and medially. The subscapularis was tagged using SutureTape in a Bakari-Jorge fashion and traction used confirm appropriate mobilization of the subscapularis tendon after gentle blunt dissection was used to free it up. The supraspinatus and infraspinatus were identified and left intact. Appropriate coagulation was achieved especially interiorly. The surgical neck was cut using an oscillating saw with the humeral head bone brought back table in case there was a need for future bone grafting. The proximal humeral protection plate was used to provisionally confirm suture cup and glenosphere size. Attention was then turned to the glenoid and retractors were placed and a circumferential release performed using the long head of the biceps remnant to remove soft tissue about the glenoid rim. Care was taken inferiorly to work on bone only between 5 and 7:00 o'clock and bluntly elevate tissues inferiorly. The VIP guide was placed on the glenoid and used to confirm placement and trajectory of the central guidepin. The guidepin was inserted and advanced just through the far cortex ensuring adequate central post length. Depth gauge was used to confirm length. The glenosphere sizer was used to confirm positioning and glenosphere size. The helicopter pilot instructor drill followed by eccentric reamer were used to appropriately prepare for the baseplate. The 25 mm central screw drill used. The augmented baseplate was impacted and fully compressed onto the glenoid surface with impressive post fixation strength. The locking guide was then used to drill and place appropriately lengthed inferior, superior, anterior, and posterior screws. The [id number] reamer was used to confirm adequate peripheral reaming. The glenosphere was applied with the horologist apprentice and then impacted to engage the Reddy taper. It was then locked with appropriate countersinking of the setscrew. The glenosphere was inspected and found to have good fit, appropriate positioning, and no soft tissue or bony impingement. Attention was then turned back to the proximal humerus, which was delivered from the wound and maintained in external rotation. Reamers were started appropriately posterior to the bicipital groove taking care to maintain in line approach with the humeral canal. Sequential reaming was done from size 5 up to size 8. Next, the broaches were sequentially used to open the proximal humerus starting with a size 5 and going up to size 8 and sunk to the appropriate depth while maintaining approximately 30 degrees retroversion. There was good metaphyseal fit and rotational control of the proximal humerus with this size. The neutral offset guide was used to ream for the undersized suture cup, which better preserved proximal humeral bone and was desired given intact rotator cuff and planned subscapularis repair. The humeral trial cup was connected. Trialing was commenced with +3 mm liner. The shoulder was reduced and taken through range of motion. Trial components were built up to +6 mm liner to achieve good stability and appropriate tension on the deltoid and conjoined tension. The trial components were removed from the proximal humerus. The wound was copiously irrigated with normal saline. A 2 mm drill was used to drill 2 drill holes in the bicipital groove for later subscapularis repair. The the proximal humeral stem and suture cup were assembled and brought over the proximal humerus. Suture tapes were placed superiorly inferiorly at the medial and lateral aspect of the suture cup. The lateral tapes were brought out the drill holes. A small amount of vancomycin powder was distributed in the proximal humerus. The humeral component and suture cup were impacted into place. The trial liner was added, and the shoulder was reduced and range of motion, stability, and tension confirmed to be appropriate. The final liner was then connected, and range of motion, stability, and tension confirmed. The shoulder was copiously irrigated with Betadine and normal saline. The arm was placed in about 30 degrees of external rotation. The subscapularis was reduced and repaired using the KodyTaaditya in a speed bridge type configuration. The arm was taken into more external rotation without any displacement of the subscapularis repair. The deltopectoral interval was well approximated. Subcutaneous tissue was irrigated then closed using 2-0 Monocryl in a buried interrupted fashion. Skin was closed using 3-0 Monocryl in a buried subcuticular fashion. Skin glue was applied to the incision. A silver impregnated bandage was placed over the incision. The extremity was placed into a shoulder immobilizer. The patient awoke from anesthesia without complication and was taken to the recovery room in stable condition.
--- NOTE | 2021-12-22 17:40 | W.ANESPOSTOP ---
Postoperative Evaluation Date, Time and Location Date Performed: 12/22/21 Time Performed: 17:40 Patient Location: PACU Vital Signs Most Recent Imported Vital Signs: Most Recent Vital Signs Temp Pulse Resp BP Pulse Ox 36.3 C L 88 12 104/47 L 99 12/22/21 17:35 12/22/21 17:35 12/22/21 17:35 12/22/21 17:35 12/22/21 17:35 Pain Score Most Recent Pain Score: Most Recent Pain Score Pain Level 0 12/22/21 12:40 Assessment Mental Status: Awake (Alert & Oriented to Patient Baseline) Airway and Respiratory Function: Patent airway with normal (patient baseline) respiratory exam Cardiovascular Function: Hemodynamically Stable Hydration Status: Adequately Hydrated Nausea & Vomiting: No Nausea or Vomiting Pain: Pain is tolerable per patient Peripheral Nerve Block: Regional nerve block not resolved at time of post operative discharge
--- NOTE | 2021-12-22 17:58 | W.PM.PROGNOT ---
Date of Service Date of service: 12/22/21 Time of Service: 17:56 Assessment and Plan Assessment and plan (1) Arthritis of right shoulder region: Status: Acute Assessment and plan: 76-year-old male postop day #0 status post right reverse total shoulder arthroplasty with biceps tenodesis Complete 24 hours postoperative antibiotics Void trial. If unable to void, place arce and discontinue catheter AM postop day #1 Pain control-Multimodal as ordered. Physical therapy and Occupational Therapy ordered: Reverse TSA protocol. Should remove sling while in bed or resting. Recommend sling when ambulatory or out of home. Passive range of motion to the shoulder. Active range of motion elbow, wrist, and hand. May use upper extremity gently for all essential ADLs including active range of motion within a limited arc with light weightbearing. Continue mechanical DVT prophylaxis with SCDs and/or BEATRIZ hose Resume home dose Eliquis tomorrow 24 hours post procedure Plan on discharge home later tonight or tomorrow depending on patient's comfort, mental status, and hemodynamic stability. Subjective Subjective Interval history since last seen: No complaints Exam Narrative Exam Narrative: Resting comfortably in PACU. No distress. Breathing nonlabored. 2+ right radial pulse. Irregular rhythm. Regular rate. Right shoulder bandage clean, dry, and intact. No significant edema or ecchymosis. Motor or sensory exam limited by nerve block in place Objective Last Vital Signs Temp 97.3 F L 12/22/21 17:35 Pulse 88 12/22/21 17:35 Resp 12 12/22/21 17:35 BP 104/47 L 12/22/21 17:35 Pulse Ox 99 12/22/21 17:35
[2021-12-22] MEDS: ceFAZolin 1 GM/50 ML BAG IVPB (20:06)
[2021-12-22] MEDS: Metoprolol CR 100 MG TABCR PO (20:07)
[2021-12-23] MEDS: Acetaminophen 500 MG TAB 1000 MG PO ×2 (00:01→08:44)
[2021-12-23] MEDS: Normal Saline Flush 10 ML SYR IV (00:07)
[2021-12-23 03:30] VITALS: BP 114/76; PULSE 100; RESP 16; TEMP 37.2; O2SAT 100
[2021-12-23] MEDS: oxyCODONE 5 MG TAB PO (04:19)
[2021-12-23] MEDS: Normal Saline Flush 10 ML SYR IVP (04:19)
[2021-12-23] MEDS: ceFAZolin 1 GM/50 ML BAG IVPB (04:19)
--- NOTE | 2021-12-23 07:13 | W.PM.DS.N ---
Date of service: 12/23/21 Time of Service: 07:10 DS: Diagnosis Discharge Diagnosis (1) Arthritis of right shoulder region: Status: Acute Discharge Plan Disposition Patient Disposition: HOME Condition: Stable Discharge Details Reason For Visit: Right shoulder surgery Admit Date/Time: 12/22/21 11:07 Admit Provider: Praful Duenas Attending Provider: Praful Duenas Primary Care Provider: Jeyson Alberts Hospital Course Hospital Course: Right Reverse TSA 12/22/21 Home Meds and New Rx's Prescriptions: New oxycodone 5 mg tablet 5 - 10 mg PO Q4H MDD 30 mg PRN (Reason: moderate to severe pain) Qty: 18 0RF Continued metoprolol succinate 200 mg tablet extended release 24 hr 100 mg PO BID fluticasone propionate 50 mcg/actuation spray,suspension 2 spray intranasal DAILY PRN Rx Instructions: administer into each nostril simvastatin 20 MG tablet 20 mg PO DAILY ramipril 2.5 MG capsule 2.5 mg PO DAILY multivitamin 1 EACH capsule 1 ea PO DAILY albuterol sulfate [ProAir HFA] 8.5 GM HFA aerosol inhaler 2 puff Inhalation DIRECTED Label Comments: 06/09/14 Pt states only prn. PG Eliquis 5 MG tablet 5 mg PO BID Qty: 60 0RF Discharge Instructions Additional Instructions: Surgery: Right reverse total shoulder arthroplasty with biceps tenodesis Activity: Do not lift anything heavier than a coffee. You should keep your arm at your side in a neutral position at all times except for gentle range of motion exercises, physical therapy, and essential activities. You should use the sling whenever you are out of the house. You may have to adjust the abduction pillow or remove it for comfort. At home it is best to remove the sling and rest the arm on a pillow at your side or support the operative side with your other hand. A physical therapy prescription will be sent electronically to start in 2-3 weeks. Reverse TSA Protocol: Postoperative Weeks 0-6 ?Immobilization: Sling may be removed for therapeutic exercises, resting in bed or chair, and bathing ?Motion exercises: Pendulum exercises, elbow range- of-motion exercises, wrist [id number]-[id number] exercises, and computer hardware engineer strengthening ?Restrictions: No active internal rotation or backwards extension Postoperative Weeks 6-12 ?Immobilization: Sling discontinued ?Motion exercises: Shoulder passive range of motion, advancing to active-assisted range of motion, and finally active range of motion with a goal of forward flexion to 90? and external rotation of 20? ?Strengthening exercises: Light, resisted forward flexion, external rotation, and abduction limited to isometric exercises and therapy bands with concentric motions only. Continue computer hardware engineer strengthening ?Restrictions: No resisted internal rotation or backwards extension. No scapular retraction exercises with therapy bands Postoperative Months 3-12 ?Motion exercises: Increase spzsz-lo-vkmxqz exercises to achieve full motion, with passive stretching at end ranges ?Strengthening: Begin resisted, internal rotation and backwards extension initially with isometric exercises advancing to light therapy bands and then weights. Advance other shoulder strengthening exercises to include the rotator cuff, deltoid, and scapular stabilizers. Advance to functional strengthening, including plyometric exercises and core strengthening. Resume Eliquis tomorrow afternoon 24 hours after surgery Prescription: Oxycodone 5 mg take 1-2 every 4-6 hours as needed for severe pain You may use [id number] Tylenol (acetaminophen) as needed for mild pain. Also, recommend Colace (docusate) as a stool softener as surgery and pain medicine cause constipation. Dressings: Leave dressing in place until follow-up. Keep clean and dry at all times. No showers please. Follow-up: 10-[address] Duenas Please call the office during business hours with any questions or concerns. Let us know right away if you develop any redness, drainage, fevers, chest pain, or trouble breathing. Do not drink alcohol or drive for at least 24 hours after anesthesia. Stand Alone Forms: Anesthesia Discharge Inst., Nerve Block Instructions, Sanjuana Keyes (DSU) Activity:: RTSA protocol Equipment/Supplies:: Sling Diet:: As Tolerated Discharge Orders Discharge Orders: Discharge Order (Routine); Ordered 12/23/21 Ordered By: Praful Duenas DS: Summary Time Spent with Patient providing and/or coordinating discharge services: Less than 30 minutes Status at Discharge Functional status at discharge: independent ambulation Overall status at discharge: patient is progressing back to baseline Mental Status: mental status grossly normal (at baseline) Speech and Movement: speech and movement normal Mood: congruent mood Affect: normal affect Exam Narrative Exam Narrative: Denies any shortness of breath, chest pain, or headache. Localized shoulder pain about surgical site, tolerable and improved with pain medications. Feels like he is himself. Appears at his baseline level of mental status with known cognitive issues from dementia. Right shoulder with moderate early edema and ecchymosis. Sensation largely intact throughout right upper extremity including axillary nerve. Demonstrates good active motor elbow wrist and fingers. 2+ right radial pulse. Breathing comfortably on room air. Psych Mental Status: mental status grossly normal (at baseline) Speech and Movement: speech and movement normal Mood: congruent mood Affect: normal affect DS: Data Vitals/I&O Vitals and I&O: Vital Signs Temperature 97.3 F L 12/22/21 17:25 Temperature Source Tympanic 12/22/21 12:40 Pulse 89 12/22/21 17:25 Pulse Rhythm Irregular 12/22/21 12:14 Respiratory Rate 20 12/22/21 17:25 Blood Pressure 108/70 12/22/21 17:25 Blood Pressure Mean 117 12/22/21 12:40 Pulse Oximetry 100 12/22/21 17:25 Respiratory End-tidal CO2 30 12/22/21 17:25 Oxygen Delivery Method Room Air 12/22/21 17:25 Oxygen Flow Rate 2 12/22/21 17:20 Pain Level 0 12/22/21 12:40 Comment UNABLE TO PERFORMED POST VSS, PT. WAS TAKING TO OR RIGHT AWAY 12/22/21 12:40 Intake & Output 12/21/21 12/22/21 12/22/21 23:59 11:59 23:59 Intake Total 1110 / 1110 Output Total 300 / 300 Balance 810 / 810 Weight 146 lb 6.191 oz Intake: IV 1110 / 1110 Output: Urine 150 / 150 Estimated Blood Loss 150 / 150 Other: Urine Color Yellow Straw Urine Appearance Clear Emesis Description None PFSH All Active Problems Arthritis of right hip (Acute) Arthritis of right knee (Acute) Arthritis of right shoulder region (Acute) Impaired cognition (Acute) Medical History Abnormal auditory perception Afib Asthma History of cardioversion 05/29/17 HTN (hypertension) with goal to be determined Hyperlipidemia Hypothyroidism, unspecified Inflammatory disease of liver Leukopenia Malignant tumor of prostate Mitral regurgitation Rectal hemorrhage Sensorineural hearing loss of both ears Tinnitus Surgical History H/O prostatectomy 06/18/2011 Status post colonoscopy Status post endoscopy Status post eye surgery No further details provided Status post tonsillectomy Family History Paternal Grandmother Heart disease Paternal Grandfather Heart disease Father Heart disease Alcohol use disorder Alzheimer disease Brother Cancer malignant tumor of testis Social History Smoking/Tobacco Use Status: Never Smoking risk assessment performed?: Yes Alcohol Intake: current Alcohol Intake frequency: 0-2 drinks per day Alcohol type: hard liquor Drug use: Never Substance use type: does not use Household members: spouse Current gender identity: male What is your relationship status?: Panel score (0-1 are the most socially isolated patients): 1 What type of physical activity do you participate in: walking, bicycling and weight lifting Do you feel safe at home: Yes Do you feel safe in your relationship?: Yes
--- NOTE | 2021-12-23 07:45 | OTIE_ITS ---
Occupational Therapy Notes Inpatient Occupational Therapy Evaluation Date: 12/23/21 Referring Doctor:Praful Duenas MD Precautions: Fall, standard, Full PATIENT PROFILE/ADMITTING DIAGNOSIS: Pt is a 76 year old male was admitted s/p a (R) Reverse total shoulder arthroplasty, and (R) Open biceps tenodesis. Past Medical History: All Active Problems? Arthritis of right hip (Acute) Arthritis of right knee (Acute) Rotator cuff tear, right (Acute) Arthritis of right shoulder region (Acute) Inflammatory disease of liver (Acute) Asthma (Chronic) Afib (Chronic) Mitral regurgitation (Chronic) Impaired cognition (Acute) Leukopenia (Acute) Hyperlipidemia (Acute) HTN (hypertension) with goal to be determined (Acute) Hypothyroidism, unspecified (Chronic) Tinnitus (Acute) Abnormal auditory perception (Acute) Sensorineural hearing loss of both ears (Acute) Medical History? History of cardioversion 05/29/17Malignant tumor of prostate Rectal hemorrhage Surgical History? H/O prostatectomy 06/18/2011 Social History/Home Situation: Pt states that he lives in a private home with his . He states that he likes to be (I) and do as much as he can. He states that he is working on a boat and needs to get home as soon as possible. SUBJECTIVE: Pt states that he is sore but happy he had surgery. OBJECTIVE: General Observation: Pleasant and agreeable to OT session, OT provided pt with written and verbal instructions. Mental Status: Alert to name and place Pain: c/o pain in (R) bicep/shoulder ROM: RUE NT L UE WFL STRENGTH: RUE NT LUE 4/5 throughout FUNCTIONAL MOBILITY/ADLS: Transfers Supine-sit (I) Sit-supine (I) Sit-Stand (I) Stand-sit (I) DRESSING sitting on side of the bed Dressing UE mod vc min (A) don and doffing shirt Dressing LE mod (A) don and doffing (B) socks SPECIAL TESTS: Daily Activity Limitations [facility]? Daily Activity Inpatient Short Form: Raw score: 19 Standardized score: 40.22 CMS score: 42.80% INFORMED CONSENT/EDUCATION: Pt instructed in purpose of OT Consult and plan of care. ASSESSMENT: Patient is a 76-year-old male referred to occupational therapy services with diagnosis of (R) Reverse total shoulder arthroplasty, Open biceps tenodesis . Patient presents with clinical signs and symptoms consistent with dx, as demonstrated by the following impairment level findings/functional limitations: cognitive limitations which pt is at his baseline level of function, decreased (R) UE ROM, decreased strength, pain from surgical procedure. [facility] score 19 Patient is assessed as a Moderate 01091 complexity based on the following: History: see above Examination: see functional limitations as noted above Presentation: evolving Decision Making: [facility] 19 GOALS-N/A OT consult only PLAN OF CARE/TREATMENT PLAN: Discharge from skilled OT services. DISCHARGE RECOMMENDATIONS Home when medically cleared per MD. TREATMENT TIME/MINUTES/CODES 87868, 30 minutes Ruby Campbell OTR/L [facility]
[2021-12-23 08:39] VITALS: BP 108/75; PULSE 102; RESP 20; TEMP 36.8; O2SAT 98
[2021-12-23] MEDS: Metoprolol CR 100 MG TABCR PO (08:44)
[2021-12-23] MEDS: Multivitamin TAB 1 TAB PO (08:44)
[2021-12-23] MEDS: Simvastatin 20 MG TAB PO (08:45)
--- NOTE | 2021-12-23 08:54 | PT.INIE ---
Date of service: 12/23/21 Time of Service: 08:54 PT Notes Visit Reasons: Right shoulder surgery Physical Therapy Inpatient Initial Evaluation Date: 12/23/2021 Referring Doctor: Praful Duenas MD PT Orders: PT CONSULT: S/p Ortho Surgery Precautions: rTSA protocol in place. Patient Profile/Admitting Diagnosis: Amanda is a 76-year-old male with rotator cuff tear on the right, end-stage glenohumeral arthritis, and long head of the biceps tendinopathy status post reverse total shoulder arthroplasty on the right with biceps tenodesis postoperative day 1. PMHX: Medical History?(Updated 12/14/21 @ 19:06 by Meredith Riley) Abnormal auditory perception Afib Asthma History of cardioversion 05/29/17 HTN (hypertension) with goal to be determined Hyperlipidemia Hypothyroidism, unspecified Inflammatory disease of liver Leukopenia Malignant tumor of prostate Mitral regurgitation Rectal hemorrhage Sensorineural hearing loss of both ears Tinnitus Surgical History?(Updated 12/14/21 @ 18:58 by Meredith Riley) H/O prostatectomy 06/18/2011 Status post colonoscopy Status post endoscopy Status post eye surgery No further details providedStatus post tonsillectomy Social History/Home Situation: With pre-existing abnormal auditory perception. Lives with in a private home. Independent with all obility with no AD/adaptive equipment. Equipment Owned/DME: Provided by Dr. Duenas with R UE abduction sling postoperatively Subjective: Complains of pain in the R shoulder. reports increased swelling in the R UE. Objective: General Observation: Patient finishing off with breakfast when PT came in. present in room. Slin on the R UE. Swelling in R arm and proximal foreram noted. Mental Status: Alert and oriented as to person, place, time, and purpose. Able to pay attention, focus, and respond appropriately. Pain: Minimal pain in R shoulder Vital Signs: WNL as monitored by nursing staff ROM: Right Upper Extremity: Patient able to use R UE and move R shoulder while eating his breakfast but with report of minimal pain. Elbow flexion WFL. Wrist flexion WFL. Functional opening and closing of hand WFL. Left Upper Extremity: Shoulder Flexion WFL. Shoulder abduction WFL. Elbow flexion WFL. Wrist flexion WFL. Functional opening and closing of hand WFL. Strength: Right Upper Extremity: Shoulder flexors NT. Shoulder abductors NT. Elbow flexors NT. Elbow extensors NT. Motion Picture Cameraman strong. Left Upper Extremity: Shoulder flexors 5/5. Shoulder abductors 5/5. Elbow flexors 5/5. Elbow extensors 5/5. Motion Picture Cameraman strong. Bed Mobility/Transfers: Rolling to L supervision, cues needed to avoid undue pressure on R UE Supine to sit supervision Sit to supine supervision Sit to stand independent, cues needed to avoid using R UE to push off from armrest Stand to sit independent, cues needed to avoid using R UE to push on armrest Bed to reclining chair independent Reclining chair to bed independent Gait: independent with no AD for 300 feet. Shoulder sling on R. Balance: Static Sitting: Normal Dynamic Sitting: Normal Static Standing: Normal Dynamic Standing: Special Tests: Mobility Limitations Standardized Measure [facility]-PAC 6 clicks Basic Mobility Inpatient Short Form: Raw Score: 22 CMS Score: 21% deficit Informed Consent/Education: Patient was instructed in purpose of PT consult and plan of care. Agreeable to proceed with established PT POC to achieve personal goals. Assessment: Patient goes home today with with orthopedic follow up in two weeks with Dr. Duenas. demonstrates good understanding of rTSA protocol and written exercises provided for her and patient. Patient presents with clinical signs and symptoms consistent with current/admitting diagnoses that have resulted to mobility limitations, gait instability, generalized weakness, and overall ADL decline as demonstrated by the following impairment level findings: 1. Decreased strength to R shoulder major muscle groups 2. Swelling in R arm and forearm 3. Pain in R shoulder and arm Impairments are contributing to the following functional limitations: 1. Decline in bed mobility skills Patient is assessed as a 98628 low complexity based on the following: History: 76-year-old female with past medical history as indicated above Examination: Demonstrable impairment in strength, balance, and mobility level with underlying impairments and functional limitations as exhibited above as well as deficit score of 21% utilizing the [facility] Mobility Inpatient Short Form Presentation: Stable Decision Makin low complexity Goals: N/A. PT evaluation only. Plan of Care/Treatment Plan: N/A. PT evaluation only. DISCHARGE RECOMMENDATIONS: Home with . TREATMENT CODE/TIME: 99321 x 29 minutes beginning at 8:54 AM. Thank you for the opportunity to participate in the care of this patient. Bianca Contreras PT, DPT, CLT [facility] [place], [place]
== END 2021-12-23 09:30 | disposition home or self-care (01) | DRG 483 ==
LOC: PDS 17:35 → MS 17:56
PROVIDERS: Admitting Provider Student in an Organized Health Care Education/Training Program; PCP Family Medicine; Visit Provider Student in an Organized Health Care Education/Training Program
PROC: 0RRJ00Z Replacement of Right Shoulder Joint with Reverse Ball and Socket Synthetic Substitute, Open Approach (ICD-10-PCS; CPT 23472; principal; 2021-12-22 13:30)
DX: M19.011 Primary osteoarthritis, right shoulder (principal); M75.81 Other shoulder lesions, right shoulder; I48.91 Unspecified atrial fibrillation; J45.909 Unspecified asthma, uncomplicated; I10 Essential (primary) hypertension; E78.5 Hyperlipidemia, unspecified; E03.9 Hypothyroidism, unspecified; I34.0 Nonrheumatic mitral (valve) insufficiency; Z85.46 Personal history of malignant neoplasm of prostate
CPT/HCPCS: 23472; 23430; 76942; 97162; 97166; 73030; J0131; J0690; J1885; J2250; J2405

== ENCOUNTER 2022-01-04 11:40 | Outpatient (CLI) | payer MEDICARE, BC, SELFPAY ==
--- NOTE | 2022-01-04 11:30 | DI.RAD_ITS ---
Exam(s) XR SHOULDER RT COMPLETE 2+V EXAM: XR SHOULDER RT COMPLETE 2+V INDICATION: RIGHT SHOULDER F/U. COMPARISON: CR XR SHOULDER RT COMPLETE 2+V from 12/22/2021 TECHNIQUE: 2D digital imaging was performed. Three views. FINDINGS: There has been no change in the alignment of the right reverse shoulder prosthesis or appearance of the surrounding bone. DATA REPOSITORY: RADIATION DOSE DELIVERED:
== END 2022-01-04 11:41 | disposition home or self-care (01) ==
LOC: DIORS 11:40
PROVIDERS: PCP Family Medicine; Referring Provider Family Medicine; Visit Provider Student in an Organized Health Care Education/Training Program
DX: M19.011 Primary osteoarthritis, right shoulder (principal); M75.101 Unspecified rotator cuff tear or rupture of right shoulder, not specified as traumatic
CPT/HCPCS: 73030

== ENCOUNTER 2022-03-01 10:40 | Outpatient (CLI) | payer MEDICARE, BC, SELFPAY ==
--- NOTE | 2022-03-01 10:15 | DI.RAD_ITS ---
Exam(s) XR SHOULDER RT COMPLETE 2+V EXAM: XR SHOULDER RT COMPLETE 2+V CLINICAL HISTORY: f/u surgery. TECHNIQUE: 2D digital imaging was performed. COMPARISON: CR XR SHOULDER RT COMPLETE 2+V from 01/04/2022 FINDINGS: 3 views There is continued stable appearance of the components of the reverse prosthesis. No fracture nor lo osening evident. Small osteophytic density just above the greater tuberosity again noted. IMPRESSION: DATA REPOSITORY: RADIATION DOSE DELIVERED:
== END 2022-03-01 10:41 | disposition home or self-care (01) ==
LOC: DIORS 10:41
PROVIDERS: PCP Family Medicine; Referring Provider Family Medicine; Visit Provider Student in an Organized Health Care Education/Training Program
DX: Z96.611 Presence of right artificial shoulder joint; Z47.89 Encounter for other orthopedic aftercare
CPT/HCPCS: 73030

== ENCOUNTER → 2022-04-25 10:52 | Outpatient (BNVA) | payer MEDICARE, BC, SELFPAY | PROVIDERS: PCP Family Medicine; Referring Provider Family Medicine; Visit Provider Internal Medicine Cardiovascular Disease | DX: I48.21 Permanent atrial fibrillation (principal); I42.9 Cardiomyopathy, unspecified | CPT/HCPCS: 99214 ==

== ENCOUNTER 2022-07-05 15:27 | Outpatient (CLI) | payer MEDICARE, BC, SELFPAY ==
--- NOTE | 2022-07-05 15:00 | DI.RAD_ITS ---
Exam(s) XR SHOULDER RT COMPLETE 2+V EXAM: XR SHOULDER RT COMPLETE 2+V CLINICAL HISTORY: right shoulder f/u. TECHNIQUE: 2D digital imaging was performed. COMPARISON: CR XR SHOULDER RT COMPLETE 2+V from 03/01/2022 FINDINGS: 3 views There is stable position alignment of the components of the reverse prosthesis. No evidence of fract ure nor loosening seen. IMPRESSION: Satisfactory stable appearance. DATA REPOSITORY: RADIATION DOSE DELIVERED:
== END 2022-07-05 15:28 | disposition home or self-care (01) ==
LOC: DIORS 15:28
PROVIDERS: PCP Nurse Practitioner Family; Referring Provider Nurse Practitioner Family; Visit Provider Student in an Organized Health Care Education/Training Program
DX: M19.011 Primary osteoarthritis, right shoulder (principal); Z96.611 Presence of right artificial shoulder joint
CPT/HCPCS: 99213; 73030

== ENCOUNTER 2022-10-24 02:51 | Outpatient (CLI) | payer MEDICARE, BC, SELFPAY ==
[2022-10-24 12:29] LABS: Abs Immature Grans 0.02 10^3/uL (0.0-0.06); Absolute Basophil Count 0.02 10^3/uL (0.0-0.2); Absolute Eosinophil Count 0.06 10^3/uL (0.0-0.7); Absolute Lymphocyte Count 1.35 10^3/uL (1.2-3.4); Absolute Monocyte Count 0.54 10^3/uL (0.1-0.8); Absolute Neutrophil Count 2.86 10^3/uL (1.2-6.7); Basophils % 0.4; Eosinophils % 1.2; HCT 44.4 % (40.0-50.0); HGB 15.5 g/dL (13.5-17.5); Immature Grans % 0.4; Lymphocytes % 27.8; MCH 33.8 pg (27.0-33.0); MCHC 34.9 % (32.0-36.0); MCV 97 fL (80-95); Monocytes % 11.1; Neutrophils % 59.1; Platelet Count 152 10^3/uL (130-400); RBC 4.58 10^6/uL (4.36-5.78); RDW 11.9 % (11.8-14.1); RDW-SD 42.7 fL; WBC 4.85 10^3/uL (4.4-10.8)
[2022-10-24 12:57] LABS: Hemoglobin A1C 5.1 % (<5.7)
[2022-10-24 13:01] LABS: ALT 32 U/L (16-63); AST 21 U/L (15-37); Albumin 4.2 g/dL (3.4-5.0); Alkaline Phosphatase 60 U/L (46-116); Anion Gap 5.9 mmol/L (3-11); BUN 17 mg/dL (7-18); Bilirubin, Total 1.6 mg/dL (0.2-1.0); CO2 31.1 mmol/L (21.0-32.0); Calcium 9.3 mg/dL (8.5-10.1); Chloride 106 mmol/L (98-107); Glucose 112 mg/dL (74-106); Potassium 4.1 mmol/L (3.5-5.1); Sodium 143 mmol/L (136-145); TSH (W/Ref FT4) 3.33 uIU/mL (0.36-3.74); Total Protein 7.1 g/dL (6.4-8.2)
[2022-10-24 23:13] LABS: PSA, Screening <0.1 ng/mL (<=6.5)
== END 2022-10-24 02:52 | disposition home or self-care (01) ==
LOC: LOS 02:51
PROVIDERS: PCP Nurse Practitioner Family; Visit Provider Nurse Practitioner Family
DX: R73.01 Impaired fasting glucose (principal); I48.91 Unspecified atrial fibrillation; I42.9 Cardiomyopathy, unspecified; F02.80 Dementia in other diseases classified elsewhere, unspecified severity, without behavioral disturbance, psychotic disturbance, mood disturbance, and anxiety; G30.9 Alzheimer's disease, unspecified; Z12.5 Encounter for screening for malignant neoplasm of prostate
CPT/HCPCS: 36415; 80053; 84153; 83036; 84443; 85025

== ENCOUNTER 2023-01-03 09:22 | Outpatient (CLI) | payer MEDICARE, BC, SELFPAY ==
--- NOTE | 2023-01-03 08:45 | DI.RAD_ITS ---
Exam(s) XR SHOULDER RT COMPLETE 2+V EXAM: XR SHOULDER RT COMPLETE 2+V CLINICAL HISTORY: YEARLY F/U RIGHT RTSA. TECHNIQUE: 2D digital imaging was performed. Five views. COMPARISON: CR XR SHOULDER RT COMPLETE 2+V from 07/05/2022 FINDINGS: There has been no change in the alignment of the reverse shoulder prosthesis. No suspicious bony adal encies are seen. IMPRESSION: Stable appearance of shoulder prosthesis peer DATA REPOSITORY: RADIATION DOSE DELIVERED:
== END 2023-01-03 09:23 | disposition home or self-care (01) ==
LOC: DIORS 09:22
PROVIDERS: PCP Nurse Practitioner Family; Referring Provider Nurse Practitioner Family; Visit Provider Student in an Organized Health Care Education/Training Program
DX: Z96.611 Presence of right artificial shoulder joint (principal); M19.011 Primary osteoarthritis, right shoulder
CPT/HCPCS: 99213; 73030

== ENCOUNTER 2023-04-24 08:00 | Outpatient (CLI) | payer MEDICARE, BC, SELFPAY ==
--- NOTE | 2023-04-24 08:00 | RT.EKG_ITS ---
APPROVED REPORT Exam: Resting ECG Reason for Exam: afib Patient Location: O HR:83 bpm ECG Measurements Heart Rate 83 AXIS NE [id number] P [id number] QRSd 162 QRS -53 QT 398 T -37 QTc 468 Conclusion Atrial fibrillation...? atrial activity RBBB and LAFB...QRSd >120mS, axis(-40,240)
== END 2023-04-24 08:01 | disposition home or self-care (01) ==
LOC: DI.CARD 08:00
PROVIDERS: PCP Nurse Practitioner Family; Visit Provider Internal Medicine Cardiovascular Disease
DX: I48.91 Unspecified atrial fibrillation (principal)
CPT/HCPCS: 93010

== ENCOUNTER → 2023-04-24 10:22 | Outpatient (BNVA) | payer MEDICARE, BC, SELFPAY | PROVIDERS: PCP Nurse Practitioner Family; Visit Provider Internal Medicine Cardiovascular Disease | DX: I48.21 Permanent atrial fibrillation (principal); Z79.01 Long term (current) use of anticoagulants; I10 Essential (primary) hypertension; I42.9 Cardiomyopathy, unspecified | CPT/HCPCS: 93005; 99213 ==

== ENCOUNTER 2023-06-26 12:42 | Outpatient (CLI) | payer MEDICARE, BC, SELFPAY ==
--- NOTE | 2023-06-26 10:15 | DI.RAD_ITS ---
Exam(s) XR SHOULDER RT COMPLETE 2+V EXAM: XR SHOULDER RT COMPLETE 2+V CLINICAL HISTORY: pain. TECHNIQUE: 2D digital imaging was performed. COMPARISON: CR XR SHOULDER RT COMPLETE 2+V from 01/03/2023 FINDINGS: Two views. Stable position alignment of the components of the reverse prosthesis. However, on the AP view there is a 1.7 x 1.2 cm calcific density evident just medial to the prosthesis of possible significance. Not evident on the prior images. IMPRESSION: Finding as above. DATA REPOSITORY: RADIATION DOSE DELIVERED:
== END 2023-06-26 12:43 | disposition home or self-care (01) ==
LOC: DIORS 12:42
PROVIDERS: PCP Nurse Practitioner Family; Referring Provider Nurse Practitioner Family; Visit Provider Student in an Organized Health Care Education/Training Program
DX: Z47.1 Aftercare following joint replacement surgery; Z96.611 Presence of right artificial shoulder joint
CPT/HCPCS: 99213; 73030

== ENCOUNTER → 2023-08-09 00:37 | Outpatient (CLI) | payer MEDICARE, BC, SELFPAY ==
--- NOTE | 2023-08-09 14:40 | DI.RAD_ITS ---
Exam(s) XR WRIST RT COMPLETE EXAM: XR WRIST RT COMPLETE CLINICAL HISTORY: right wrist pain,M25.531. TECHNIQUE: 2D digital imaging was performed. COMPARISON: No exams were available for comparison FINDINGS: 3 views No evidence of fracture or dislocation nor significant ulnar variance. Scaphoid and scapholunate dis tance normal. Bone density normal. No osseous lesions. IMPRESSION: No acute osseous findings in the wrist. DATA REPOSITORY: RADIATION DOSE DELIVERED:
== END ==
PROVIDERS: PCP Nurse Practitioner Family; Visit Provider Nurse Practitioner Family
DX: M25.531 Pain in right wrist (principal)
CPT/HCPCS: 73110

== ENCOUNTER 2023-10-14 12:19 | Emergency (ER) | payer MEDICARE, BC, SELFPAY ==
[2023-10-14 12:23] VITALS: BP 112/69; PULSE 85; RESP 18; TEMP 36.6; O2SAT 100
[2023-10-14 12:42] VITALS: RESP 18
[2023-10-14 13:25] LABS: Abs Immature Grans 0.02 10^3/uL (0.0-0.06); Absolute Basophil Count 0.03 10^3/uL (0.0-0.2); Absolute Eosinophil Count 0.05 10^3/uL (0.0-0.7); Absolute Lymphocyte Count 1.13 10^3/uL (1.2-3.4); Absolute Monocyte Count 0.48 10^3/uL (0.1-0.8); Absolute Neutrophil Count 5.28 10^3/uL (1.2-6.7); Basophils % 0.4; Eosinophils % 0.7; HCT 45.2 % (40.0-50.0); HGB 15.9 g/dL (13.5-17.5); Immature Grans % 0.3; Lymphocytes % 16.2; MCH 33.7 pg (27.0-33.0); MCHC 35.2 % (32.0-36.0); MCV 96 fL (80-95); MPV 9.2 fL (8.0-11.0); Monocytes % 6.9; Neutrophils % 75.5; Platelet Count 145 10^3/uL (130-400); RBC 4.72 10^6/uL (4.36-5.78); RDW 12.1 % (11.8-14.1); RDW-SD 42.5 fL; WBC 6.99 10^3/uL (4.4-10.8)
[2023-10-14 13:27] VITALS: BP 112/69; PULSE 85; RESP 18; TEMP 36.6; O2SAT 100
[2023-10-14 13:40] LABS: ALT 26 U/L (16-63); AST 18 U/L (15-37); Albumin 4.6 g/dL (3.4-5.0); Alkaline Phosphatase 66 U/L (46-116); Anion Gap 8.7 mmol/L (3-11); BUN 14 mg/dL (7-18); CO2 30.3 mmol/L (21.0-32.0); CREATININE 0.9 mg/dL (0.70-1.30); Calcium 9.6 mg/dL (8.5-10.1); Chloride 105 mmol/L (98-107); Estimated GFR 87.96 (mL/min/1.73m2); Glucose 113 mg/dL (74-106); Lipase 46 U/L (16-77); Potassium 3.9 mmol/L (3.5-5.1); Sodium 144 mmol/L (136-145); Total Protein 7.5 g/dL (6.4-8.2)
[2023-10-14 13:48] LABS: Bilirubin Small (Negative); Blood Moderate (Negative); Clarity Clear (Clear); Glucose Negative (Negative); Ketones Trace mg/dL (Negative); Leukocyte Esterase Negative (Negative); Nitrite Negative (Negative); Specific Gravity 1.025 (1.005-1.025)
[2023-10-14 13:58] LABS: Bacteria Negative HPF (Negative); C & S Indicated? No; Casts Negative LPF (Negative); Crystals Negative HPF (Negative); Epithelial Cells Rare HPF (Negative); Mucus Moderate (Negative); Other Cells Rare Renal (Negative); RBC 20-50 HPF (0-2); WBC 0-2 HPF (0-5)
--- NOTE | 2023-10-16 11:44 | W.ED.GENAD ---
Discharge Plan Disposition Patient Disposition: Home Discharge Details Clinical Impression: Hematuria, microscopic, Nausea & vomiting Primary Care Provider: Letty Damian ED Provider: Wanda Curtis Home Meds and New Rx's Prescriptions: Continued Eliquis 5 mg tablet 5 mg PO BID Qty: 180 3RF fluticasone propionate 50 mcg/actuation spray,suspension 2 spray intranasal DAILY PRN (Reason: allergy symptoms) Qty: 16 0RF Rx Instructions: administer into each nostril metoprolol succinate 100 mg tablet extended release 24 hr 100 mg PO BID Qty: 180 3RF ramipril 2.5 mg capsule 2.5 mg PO DAILY Qty: 90 3RF simvastatin 20 mg tablet 20 mg PO DAILY Qty: 90 3RF donepezil [Aricept] 10 mg tablet 10 mg PO DAILY multivitamin 1 EACH capsule 1 ea PO DAILY Discharge Instructions Instructions: Acute Nausea and Vomiting (ED), Hematuria (ED) Additional Instructions: Your tests today are reassuring, try to hydrate yourself and drink regular fluids You do have some blood in your urine, your urinalysis should be rechecked next week with your doctor Please return earlier should you have any new or worsening complaints Referrals: Letty Damian, JORGE [Primary Care Provider] - 1 day Discharge Data Discharge Date/Time-TO BE ENTERED AT DEPARTURE: 10/14/23 14:42 HPI General Date/Time Provider Initiated Documentation: 10/14/23 12:39. HPI Narrative: This 78-year-old male with known history of Alzheimer's dementia is presenting for assessment of intermittent nausea and vomiting with intermittent abdominal pain. He states that his went down to sweet pickle maker their daughter and he became concerned about his symptoms and wanted evaluation which is why he presents. He denies any current complaints. He denies chest pain, shortness of breath, or any abdominal pain. Related Data Home Medications Medication Instructions Recorded Confirmed multivitamin 1 ea PO DAILY 11/18/12 10/14/23 donepezil 10 mg tablet (Aricept) 10 mg PO DAILY 10/19/22 10/14/23 apixaban 5 mg tablet (Eliquis) 5 mg PO BID #180 tabs 11/10/22 10/14/23 fluticasone propionate 50 2 spray intranasal DAILY PRN 11/10/22 10/14/23 mcg/actuation nasal allergy symptoms #16 grams spray,suspension metoprolol succinate 100 mg 100 mg PO BID #180 tabs 11/10/22 10/14/23 tablet,extended release 24 hr ramipril 2.5 mg capsule 2.5 mg PO DAILY #90 caps 11/10/22 10/14/23 simvastatin 20 mg tablet 20 mg PO DAILY #90 tabs 11/10/22 10/14/23 Previous Rx's Medication Instructions Recorded apixaban 5 mg tablet (Eliquis) 5 mg PO BID #180 tabs 11/10/22 fluticasone propionate 50 2 spray intranasal DAILY PRN 11/10/22 mcg/actuation nasal allergy symptoms #16 grams spray,suspension metoprolol succinate 100 mg 100 mg PO BID #180 tabs 11/10/22 tablet,extended release 24 hr ramipril 2.5 mg capsule 2.5 mg PO DAILY #90 caps 11/10/22 simvastatin 20 mg tablet 20 mg PO DAILY #90 tabs 11/10/22 Allergies Allergy/AdvReac Type Severity Reaction Status Date / Time No Known Allergies Allergy Verified 10/14/23 12:27 General Stated Complaint: AMS/LOC HEBER: 3 Exam Narrative Exam Narrative: 78-year-old male presenting alert and oriented x 2, pupils equal round reactive to light and accommodation, moist mucous membranes, no abdominal tenderness, lungs clear to auscultation bilaterally, cardiac rate rhythm regular, no rebound or guarding, no CVA tenderness, no calf tenderness or swelling, distal pulses intact all 4 extremities, short-term memory affected as patient repeatedly asks why he is in the emergency department. Course Vital Signs Vital signs: Vital Signs Temperature 36.6 C 10/14/23 12:23 Pulse 85 10/14/23 12:23 Respiratory Rate 18 10/14/23 12:23 Blood Pressure 112/69 10/14/23 12:23 Pulse Oximetry 100 10/14/23 12:23 Temperature 36.6 C 10/14/23 13:27 Temperature Source Skin 10/14/23 13:27 Pulse 85 10/14/23 13:27 Respiratory Rate 18 10/14/23 13:27 Respiratory Effort Normal 10/14/23 12:42 Respiratory Depth Normal 10/14/23 12:42 Respiratory Pattern Normal 10/14/23 12:42 Blood Pressure 112/69 10/14/23 13:27 Blood Pressure Position Sitting 10/14/23 13:27 Pulse Oximetry 100 10/14/23 13:27 Oxygen Delivery Method Room Air 10/14/23 13:27 Oxygen Flow Rate 0 10/14/23 13:27 Pain Level 0 10/14/23 13:27 Lab/Test Results Lab/Test Results: Laboratory Tests Range/Units 10/14/23 10/14/23 13:20 13:40 WBC (4.4-10.8) 10^3/uL 6.99 RBC (4.36-5.78) 10^6/uL 4.72 Hgb (13.5-17.5) g/dL 15.9 Hct (40.0-50.0) % 45.2 MCV (80-95) fL 96 H MCH (27.0-33.0) pg 33.7 H MCHC (32.0-36.0) % 35.2 RDW (11.8-14.1) % 12.1 Plt Count (130-400) 10^3/uL 145 MPV (8.0-11.0) fL 9.2 Immature Gran % 0.3 Neutrophils % 75.5 Lymphocytes % 16.2 Monocytes % 6.9 Eosinophils % 0.7 Basophils % 0.4 Nucleated RBC % (0.0-0.3) % 0.0 Absolute Neutrophils (1.2-6.7) 10^3/uL 5.28 Absolute Lymphocytes (1.2-3.4) 10^3/uL 1.13 L Absolute Monocytes (0.1-0.8) 10^3/uL 0.48 Absolute Eosinophils (0.0-0.7) 10^3/uL 0.05 Absolute Basophils (0.0-0.2) 10^3/uL 0.03 Sodium (136-145) mmol/L 144 Potassium (3.5-5.1) mmol/L 3.9 Chloride (98-107) mmol/L 105 Carbon Dioxide (21.0-32.0) mmol/L 30.3 Anion Gap (3-11) mmol/L 8.7 BUN (7-18) mg/dL 14 Creatinine (0.70-1.30) mg/dL 0.9 Est GFR (CKD-EPI 2020) (mL/min/1.73m2) 87.96 Glucose (74-106) mg/dL 113 H Calcium (8.5-10.1) mg/dL 9.6 Total Bilirubin (0.2-1.0) mg/dL 2.0 H AST (15-37) U/L 18 ALT (16-63) U/L 26 Alkaline Phosphatase (46-116) U/L 66 Total Protein (6.4-8.2) g/dL 7.5 Albumin (3.4-5.0) g/dL 4.6 Lipase (16-77) U/L 46 Urine Color (Yellow) Yellow Urine Clarity (Clear) Clear Urine pH (5-8) 6.0 Ur Specific [place] (1.005-1.025) 1.025 Urine Protein (Neg-Trace) mg/dL Negative Urine Ketones (Negative) mg/dL Trace H Urine Blood (Negative) Moderate H Urine Nitrite (Negative) Negative Urine Bilirubin (Negative) Small H Urine Urobilinogen (Up to 0.2) mg/dL 2.0 H Ur Leukocyte Esterase (Negative) Negative Urine RBC (0-2) HPF 20-50 H Urine WBC (0-5) HPF 0-2 Ur Epithelial Cells (Negative) HPF Rare Urine Crystals (Negative) HPF Negative Urine Bacteria (Negative) HPF Negative Urine Casts (Negative) LPF Negative Urine Mucus (Negative) Moderate Urine Other (Negative) Rare Renal Ur Culture Indicated? No Urine Glucose (Negative) mg/dL Negative Medical Decision Making This is a pleasant 78-year-old male with known history of Alzheimer's dementia, his Breanne is his DPOA and she was called as patient does appear quite confused at least in terms of short-term memory, he was able to give me all the basic information as to where his was and why she was not present at this time. He does report an episode of nausea vomiting 2 days ago for which she would like to be assessed now however patient prior to having blood work drawn said he needed to go sweet pickle maker his . I did confirm with Breanne, patient's that this is his baseline and she actually will come to the emergency department to make them out. She does not want us to do your CAT scan as she does not feel like it is necessary at this time and she makes his medical decisions. I think it is concerning that patient still has his license because his short-term memory does appear to be severely affected. His long-term memory does appear to be intact. Patient's exam is benign his labs are reassuring and his bilirubin is stable for him when compared to prior. presents to the emergency department daughter and they feel as though he is at his baseline and would like him to be discharged at this time. Encouraged to talk with patient's neurologist and primary care physician about whether or not patient is safe to be driving. Return precautions reviewed and patient and family expressed understanding Quality:SDOH Health Related Social Needs: No Data to Display [facility] All Active Problems (Updated 10/14/23 @ 14:23 by LEE Atwood) Nausea & vomiting (Acute) Hematuria, microscopic (Acute) Alzheimers disease (Chronic) [facility] Neurology Atrial fibrillation (Chronic) Cardioversion 2017. [facility] Cardiology Cardiomyopathy (Chronic) 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 Renal calculi Diverticulitis large intestine Asthma Malignant tumor of prostate Surgical History (Updated 07/19/23 @ 13:28 by Letty Damian NP) S/P left knee arthroscopy Hx of vitrectomy Right eye Hx of cataract surgery 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 Son Asthma Maternal Grandfather , 61 Heart disease Diabetes Maternal Grandmother , 86 No problems noted. Paternal Grandfather Heart disease Paternal Grandmother No problems noted. Social History Smoking/Tobacco Use Status: Never Second Hand Exposure: Yes Smoking risk assessment performed?: Yes Alcohol Intake: current Alcohol Intake frequency: a few times a week Alcohol type: beer, wine and hard liquor Drug use: Never Substance use type: does not use Caregiver/Support person: No Household members: spouse Housing: house Communication Needs: Hard of Hearing Do you need help understanding health information?: Rarely Pets and animals: No Sexually active: No Do you think of yourself as: straight/heterosexual Current gender identity: male What is your relationship status?: How often do you talk on the phone with friends or family?: twice per week How often do you get together with friends or relatives?: once per week How often do you attend bahai or synagogue services?: decline to answer Do you belong to any clubs or organized social groups?: no Panel score (0-1 are the most socially isolated patients): 2 What type of physical activity do you participate in: walking and aerobic Duration: 15-30 minutes/day Frequency: 3-4 times per week Eloise/Worship: No preference Special eloise needs: No Seatbelt use: always Helmet use: Yes Helmet use: always Drive intox or ride w/intox tanker driver: No Do you feel safe at home: Yes Do you feel safe in your relationship?: Yes
== END 2023-10-14 14:42 | disposition home or self-care (01) ==
PROVIDERS: Emergency Provider Physician Assistant; PCP Nurse Practitioner Family
DX: R11.2 Nausea with vomiting, unspecified (principal); R31.9 Hematuria, unspecified; G30.9 Alzheimer's disease, unspecified; F02.80 Dementia in other diseases classified elsewhere, unspecified severity, without behavioral disturbance, psychotic disturbance, mood disturbance, and anxiety
CPT/HCPCS: 36415; 80053; 83690; 99283; 81003; 81015; 85025

== ENCOUNTER 2023-10-18 15:06 | Outpatient (REF) | payer MEDICARE, BC, SELFPAY ==
[2023-10-18 12:58] LABS: Bilirubin Negative (Negative); Blood Negative (Negative); Clarity Clear (Clear); Glucose Negative (Negative); Ketones Trace mg/dL (Negative); Leukocyte Esterase Negative (Negative); Nitrite Negative (Negative); Specific Gravity 1.025 (1.005-1.025); pH 5.5 (5-8)
== END 2023-10-18 15:07 | disposition home or self-care (01) ==
LOC: LBN 15:06
PROVIDERS: PCP Nurse Practitioner Family; Visit Provider Nurse Practitioner Family
DX: R31.29 Other microscopic hematuria (principal)
CPT/HCPCS: 81003

== ENCOUNTER → 2024-04-22 10:56 | Outpatient (BNVA) | payer MEDICARE, BC, SELFPAY | PROVIDERS: PCP Nurse Practitioner Family; Visit Provider Internal Medicine Cardiovascular Disease | DX: I48.21 Permanent atrial fibrillation (principal); I42.9 Cardiomyopathy, unspecified | CPT/HCPCS: 99213 ==

== ENCOUNTER 2024-05-09 01:50 | Outpatient (CLI) | payer MEDICARE, BC, SELFPAY ==
--- NOTE | 2024-05-09 14:30 | DI.US_ITS ---
APPROVED REPORT EXAM: Comprehensive 2D, Doppler, and color-flow Echocardiogram Patient Location: Out-Patient Towerman: Judit Brown RDCS (AE) Indications: Permanent A Fib, Cardiomyopathy, HTN, Valvular heart disease Other Information Study Quality: Fair. Technically limited study due to body habitus, inability to position patient exa m done LLD/supine.. Conclusion Normal left ventricular thickness and chamber size. Ejection fraction is 40%. Wall motion is normal Mildly dilated right ventricle Both atria are moderately enlarged Trileaflet aortic valve with trace regurgitation Normal mitral valve with moderate regurgitation Normal tricuspid valve with moderate regurgitation. Estimated right ventricular systolic pressure is 25 mmHg Ascending aorta measures 3.7 cm Overall LV function is similar to multiple previous Wall motion Left Ventricle The left ventricle is normal size. Left ventricular systolic function is moderately decreased. There is normal left ventricular wall thickness. There is global hypokinesis of the left ventricle. There i s no ventricular septal defect visualized. LVEF is 40%. Right Ventricle Right ventricle is mildly dilated. The right ventricular systolic function is normal. Atria Left atrium is moderately dilated. Right atrium is moderately dilated. The interatrial septum is inta ct with no evidence for an atrial septal defect. Aortic Valve The aortic valve is normal in structure. Aortic valve is trileaflet. There is no aortic valvular sten osis. Trace aortic regurgitation. Mitral Valve The mitral valve is normal in structure. No evidence of mitral valve stenosis. Moderate mitral regurg itation. Tricuspid Valve The tricuspid valve is normal in structure. There is no tricuspid valve stenosis. Moderate tricuspid regurgitation. The RVSP is 25.3mmHg. Pulmonic Valve The pulmonary valve is normal in structure. There is no pulmonic valvular stenosis. Trace to mild pul nellie regurgitation. Great Vessels The aortic root is normal in size. The ascending aorta is mildly dilated. Aortic arch is not well vis ualized. IVC is normal in size and collapses >50% with inspiration. Pericardium There is no pericardial effusion. 2D Dimensions IVSD d PLAX 0.71 cm M: 0.6-1.2 Ao Root d 3.31 cm M: 3.1 - 3.7 LVPW d PLAX 0.70 cm M: 0.6 - 1.2 Ao Asc Diam d 3.70 cm M: 2.6 - 3.4 LVID d PLAX 5.52 cm M: 4.2 - 5.8 LVDs 4.42 cm M: 2.5 - 4.0 LV EF Teichholz 40.5 % FS 19.99 % LV EDV (Teich) 148.9 mL LV ESV (Teich) 88.6 mL M-Mode TAPSE 1.90 cm (M/F) >1.7 Auto EF LV EDV A4C 97.7 mL LV EDV A2C LV EDV BP LV ESV A4C 57.4 mL LV ESV A2C LV ESV BP LVEF(%) A4C 41.3 % LVEF(%) A2C LVEF(%) BP LV SV A4C 40.4 ml LV SV A2C LV SV BP LV CO A4C 2.6 L/min LV CO A2C LV CO BP HR A4C 64.52 BPM HR A2C LV EDV Index (BP) LV Diastology MV E' medial 0.070 (>0.07 m/s) MV E Vmax 0.97 (0.4-1.3 m/s) MV E/E' MED 13.99 (<14) MV E' lateral 0.102 (>0.1 m/s) MV E/E' LAT 9.57 (<14) MV E' Average 0.086 m/s MV E/E'(average) 11.36 Aortic Valve AoV Vmax 1.13 m/s LVOT Vmax 0.76 m/s AoV Peak Grad 5.1 mmHg LVOT Peak Grad 2.3 mmHg AoV Area (Vmax) 2.04 cm2 LVOT VTI 0.160 m AoV VTI 0.225 m LVOT Mean Grad 1.4 mmHg AoV Mean Dawson. 0.80 m/s LVOT SV 48.54 mL AoV Mean Grad 2.9 mmHg LVOT Diam s 1.95 cm AoV Area (VTI) 2.16 cm2 AV Regurg Peak Gr. 5.11 mmHg Velocity Ratio 0.67 Mitral Valve MV DT 172 (160-240 msec) MV Vmax TIPS 1.08 m/s MV Mean Grad 1.8 (<2mmHg) MV VTI 0.255 m Pulmonary Valve PV Vmax 0.72 (0.5-1.5 m/s) RVOT Vmax 0.62 m/s PV Peak Grad 2.1 mmHg RVOT Peak Gr. 1.6 mmHg PV Mean Dawson 0.54 m/s RVOT VTI 0.141 m PV Mean Grad 1.2 mmHg RVOT Mean Gr. 0.8 mmHg Tricuspid Valve RA Pressure 3.00 mmHg TR Vmax 2.36 m/s TV S' 0.11 m/s TR Peak Grad 22.2 mmHg RVSP (TR) 25.3 mmHg
== END 2024-05-09 02:10 ==
LOC: DI 01:50
PROVIDERS: PCP Nurse Practitioner Family; Visit Provider Internal Medicine Cardiovascular Disease
DX: I35.1 Nonrheumatic aortic (valve) insufficiency (principal); I36.0 Nonrheumatic tricuspid (valve) stenosis; I48.21 Permanent atrial fibrillation
CPT/HCPCS: 93306

== ENCOUNTER 2024-06-05 13:02 | Emergency (ER) | payer MEDICARE, BC, SELFPAY ==
[2024-06-05 13:25] VITALS: BP 118/76; PULSE 78; RESP 18; TEMP 36.7
[2024-06-05 15:20] LABS: Abs Immature Grans 0.04 10^3/uL (0.0-0.06); Absolute Basophil Count 0.02 10^3/uL (0.0-0.2); Absolute Eosinophil Count 0.01 10^3/uL (0.0-0.7); Absolute Lymphocyte Count 1.21 10^3/uL (1.2-3.4); Absolute Monocyte Count 0.58 10^3/uL (0.1-0.8); Absolute Neutrophil Count 3.91 10^3/uL (1.2-6.7); Basophils % 0.3 %; Eosinophils % 0.2 %; HGB 15.2 g/dL (13.5-17.5); Immature Grans % 0.7 %; MCH 33.9 pg (27.0-33.0); MCHC 35.3 % (32.0-36.0); MCV 96 fL (80-95); MPV 9.4 fL (8.0-11.0); Monocytes % 10.1 %; Neutrophils % 67.7 %; Platelet Count 150 10^3/uL (130-400); RBC 4.49 10^6/uL (4.36-5.78); RDW 12.3 % (11.8-14.1); RDW-SD 43.3 fL; WBC 5.77 10^3/uL (4.4-10.8)
--- NOTE | 2024-06-05 15:28 | W.ED.GENAD ---
Discharge Plan Disposition Patient Disposition: Home Condition: Stable Discharge Details Clinical Impression: Left ureteral stone Primary Care Provider: Letty Damian ED Provider: Ketan Taylor Home Meds and New Rx's Prescriptions: New tamsulosin 0.4 mg capsule 0.4 mg PO DAILY Qty: 30 0RF Continued donepezil 10 mg tablet 10 mg PO QDAY Qty: 90 3RF fluticasone propionate [Allergy Relief (fluticasone)] 50 mcg/actuation spray,suspension 2 spray intranasal DAILY Qty: 16 3RF Rx Instructions: administer into each nostril buspirone 5 mg tablet 5 mg PO QHS Qty: 90 3RF metoprolol succinate 100 mg tablet extended release 24 hr 100 mg PO BID Qty: 180 3RF simvastatin 20 mg tablet 20 mg PO DAILY Qty: 90 3RF multivitamin 1 EACH capsule 1 ea PO DAILY Discontinued Eliquis 5 mg tablet 5 mg PO BID Qty: 180 3RF No Action Eliquis 5 mg tablet 5 mg PO BID Qty: 180 3RF Discharge Instructions Instructions: Tamsulosin, Kidney Stone, Adult ED Additional Instructions: You were seen in the emergency department for your to left kidney stones that are stuck in your left ureter. One of them is 3 mm and should likely pass, the other is at the upper limit of normal that can pass at 6 mm. I spoke with our urology team and they will call you tomorrow to schedule procedure, you need to discontinue your Eliquis as this needs to be stopped prior to procedure for a number of days. I have sent a prescription for a medicine that dilates the urinary system called tamsulosin or Flomax. Please take this once daily. Please return to the emergency department for any urinary retention, extreme increase in abdominal or flank pain, fever, nausea, signs of blood loss with persistent blood in the urine like dizziness, paleness. Referrals: [facility] [Provider Group] Letty Damian NP [Primary Care Provider] - Discharge Data Discharge Date/Time-TO BE ENTERED AT DEPARTURE: 06/05/24 18:46 HPI General Date/Time Provider Initiated Documentation: 06/05/24 13:41. HPI Narrative: This 79-year-old male with history of Alzheimer's, cardiomyopathy, hypertension, hyperlipidemia, chronic anticoagulation presents with urinary frequency and hematuria with urgency started at 6:00 this morning reportedly. Has had some intermittent flank pain. Denies chest pain or shortness of breath. Denies dizziness, weakness, worsening confusion. Patient has had nausea without vomiting. Denies any trauma Related Data Home Medications ?Medication ?Instructions ?Recorded ?Confirmed multivitamin 1 ea PO DAILY 11/18/12 06/05/24 buspirone 5 mg tablet 5 mg PO QHS #90 tabs 01/11/24 06/05/24 metoprolol succinate 100 mg 100 mg PO BID #180 tabs 01/11/24 06/05/24 tablet,extended release 24 hr simvastatin 20 mg tablet 20 mg PO DAILY #90 tabs 01/11/24 06/05/24 donepezil 10 mg tablet 10 mg PO QDAY #90 tabs 03/13/24 06/05/24 fluticasone propionate 50 2 spray intranasal DAILY #16 grams 04/29/24 06/05/24 mcg/actuation nasal spray,suspension (Allergy Relief (fluticasone)) tamsulosin 0.4 mg capsule 0.4 mg PO DAILY ureteral stone #30 06/05/24 caps apixaban 5 mg tablet (Eliquis) 5 mg PO BID #180 tabs 06/06/24 06/06/24 Previous Rx's ?Medication ?Instructions ?Recorded buspirone 5 mg tablet 5 mg PO QHS #90 tabs 01/11/24 metoprolol succinate 100 mg 100 mg PO BID #180 tabs 01/11/24 tablet,extended release 24 hr simvastatin 20 mg tablet 20 mg PO DAILY #90 tabs 01/11/24 donepezil 10 mg tablet 10 mg PO QDAY #90 tabs 03/13/24 fluticasone propionate 50 2 spray intranasal DAILY #16 grams 04/29/24 mcg/actuation nasal spray,suspension (Allergy Relief (fluticasone)) tamsulosin 0.4 mg capsule 0.4 mg PO DAILY ureteral stone #30 06/05/24 caps apixaban 5 mg tablet (Eliquis) 5 mg PO BID #180 tabs 06/06/24 Allergies Allergy/AdvReac Type Severity Reaction Status Date / Time No Known Allergies Allergy Verified 06/05/24 13:24 General Stated Complaint: Urinary HEBER: 4 Exam Narrative Exam Narrative: Alert and oriented to baseline 79-year-old male in no acute distress, cardiac rate rhythm regular, no CVA tenderness, mild suprapubic tenderness, no abdominal bruit or pulsatile mass, ambulatory steady gait, no visible sign of trauma Course Vital Signs Vital signs: Vital Signs Temperature 36.7 C 06/05/24 13:25 Pulse 78 06/05/24 13:25 Respiratory Rate 18 06/05/24 13:25 Blood Pressure 118/76 06/05/24 13:25 Temperature 36.7 C 06/05/24 13:25 Temperature Source Oral 06/05/24 13:25 Pulse 78 06/05/24 13:25 Respiratory Rate 18 06/05/24 13:25 Blood Pressure 118/76 06/05/24 13:25 Blood Pressure Position Sitting 06/05/24 13:25 Oxygen Delivery Method Room Air 06/05/24 13:25 Oxygen Flow Rate 0 06/05/24 13:25 Lab/Test Results Lab/Test Results: Laboratory Tests Range/Units 06/05/24 15:13 WBC (4.4-10.8) 10^3/uL 5.77 RBC (4.36-5.78) 10^6/uL 4.49 Hgb (13.5-17.5) g/dL 15.2 Hct (40.0-50.0) % 43.0 MCV (80-95) fL 96 H MCH (27.0-33.0) pg 33.9 H MCHC (32.0-36.0) % 35.3 RDW (11.8-14.1) % 12.3 Plt Count (130-400) 10^3/uL 150 MPV (8.0-11.0) fL 9.4 Immature Gran % % 0.7 Neutrophils % % 67.7 Lymphocytes % % 21.0 Monocytes % % 10.1 Eosinophils % % 0.2 Basophils % % 0.3 Nucleated RBC % (0.0-0.3) % 0.0 Absolute Neutrophils (1.2-6.7) 10^3/uL 3.91 Absolute Lymphocytes (1.2-3.4) 10^3/uL 1.21 Absolute Monocytes (0.1-0.8) 10^3/uL 0.58 Absolute Eosinophils (0.0-0.7) 10^3/uL 0.01 Absolute Basophils (0.0-0.2) 10^3/uL 0.02 Medical Decision Making 79-year-old male presenting in no acute distress, alert and oriented to baseline, pending urinalysis at this time. Patient unable to supply urinalysis, urinated in the bowl onset of in the urinal will attempt again after fluids. Pending CT abdomen and pelvis noncontrast diagnostic labs. CBC is reassuring at this time. Suspect urinary tract infection based on patient's complaints. I did look back in patient's history and it does appear as though patient has history of hematuria in the past. Will send him pending CT abdomen pelvis chemistry and urinalysis. Quality:[facility] Health Related Social Needs: No Data to Display [facility] All Active Problems (Updated 06/05/24 @ 18:23 by LEE Dangelo) Left ureteral stone (Acute) Bilateral tinnitus (Acute) Alzheimers disease (Chronic) [facility] [place] Atrial fibrillation (Chronic) Cardioversion 2017. 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 Son Asthma Maternal Grandfather , 61 Heart disease Diabetes Maternal Grandmother , 86 No problems noted. Paternal Grandfather Heart disease Paternal Grandmother No problems noted. Daughter No problems noted. 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 Pets and animals: No Sexually active: No Do you think of yourself as: straight/heterosexual Current gender identity: male What is your relationship status?: How often do you talk on the phone with friends or family?: once per week How often do you get together with friends or relatives?: once per week How often do you attend roman catholic or yarsanism services?: decline to answer Do you belong to any clubs or organized social groups?: no Panel score (0-1 are the most socially isolated patients): 1 What type of physical activity do you participate in: other Details: House work Duration: 15-30 minutes/day Frequency: 3-4 times per week Eloise/Adventism: Non hindu Special eloise needs: No Seatbelt use: always Helmet use: No Drive intox or ride w/intox gravel truck driver: No Do you feel safe at home: Yes Do you feel safe in your relationship?: Yes Victim of physical abuse: No Victim of emotional abuse: No Victim of sexual abuse: No Would you like helpful sources: No
--- NOTE | 2024-06-05 15:42 | DI.CT_ITS ---
Exam(s) CT ABDOMEN PELVIS WO EXAM: CT ABDOMEN PELVIS WO CLINICAL HISTORY: flank pain, hematuria, hx of prostate ca. TECHNIQUE: Imaging Protocol: Axial computed tomography images with coronal and sagittal reformatted images were created and reviewed CONTRAST MATERIAL: Intravenous: none Oral: None COMPARISON: CT CT ABDOMEN PELVIS WO/W from 09/07/2021 FINDINGS: VISUALIZED LUNG BASES: No nodules nor pleural effusions evident. ABDOMEN: There is no ascites. LIVER: There are no obvious focal hepatic lesions evident of this noninfused study. GALLBLADDER/BILIARY: No obvious gallbladder pathology. CBD is not dilated. PANCREAS: No evidence of pancreatic mass nor dilatation of the pancreatic duct. SPLEEN: Spleen is not enlarged. No obvious intrasplenic lesions. ADRENALS: There are no significant adrenal masses. KIDNEYS:Bilateral nephrolithiasis again noted with multiple calculi varying size in both kidneys. On the left side there is now a calculus lodged at the upper ureter UPJ level, this calculus measuring 6 x 4 mm. There is mild dilatation above this level. In addition there is wider than normal caliber of the left ureter below this level and there is another calculus seen at the left ureterovesical ju nction/bladder lumen measuring 3 mm. All of the radiopaque calculi on the opposite-right side are wi thin the kidney and there are no significant focal findings in the right ureter. No other significan t focal findings in the left kidney. There is uniformly hyperechoic nodule in the anterior cortex of the right kidney which measures 1.0 x 1.0 cm. This is probably hemorrhagic cyst. It was previously evident on 09/07/2021.. ABDOMINAL AORTA: Abdominal aorta is not enlarged. LYMPH NODES: There is no retroperitoneal nor paraaortic adenopathy. ABDOMINAL WALL: There is a fat only containing left inguinal hernia noted, unchanged from previous. GI: There is no evidence of bowel obstruction, free air, nor abscess. There is extensive sigmoid diverticulosis without evident 2 obvious diverticulitis. There also diver ticuli in the descending-left colon distal to the splenic flexure. PELVIS: LYMPH NODES: There is no intrapelvic nor inguinal adenopathy. GI: No evidence of appendicitis.. URINARY BLADDER: Calculus at the left ureterovesical junction measuring 3 mm. REPRODUCTIVE: Prostate appears to be surgically absent. OSSEOUS: No significant osseous lesions. No fractures evident. IMPRESSION: 1. Extensive bilateral nephrolithiasis again noted. However, on the present study there 2 calculi in the left ureter. The larger calculus is in the upper left ureter at the ureteropelvic junction, thi s radiopaque calculus measuring 6 x 4 mm. There is a smaller calculus at the intra mural aspect of t he left UVJ/bladder level. The entire left ureter is dilated. All the calculi on the opposite side are within the right kidney, without radiopaque calculi evident in the nondilated right ureter. 2. Extensive diverticulosis of the sigmoid as well as diverticulosis of the descending-left colon. H owever, there is no obvious evidence of acute diverticulitis. Also no evidence of appendicitis. 3. Left inguinal hernia which contains only fat and no bowel loops. 4. Prostate gland is surgically absent there is no intrapelvic lymphadenopathy evident. No obvious sclerotic bone lesions. Report called by myself to ER provider 06/05/2024 at 5:03 p.m. RADIATION DOSE DELIVERED: 397.91mGy.cm Total DLP DATA REPOSITORY: All CT scans at this facility are submitted to the National Radiology Data Registry (NRDR) Dose Index Registry (DIR) with the [employer] (A[employer]). RADIATION OPTIMIZATION: All CT scans at this facility use at least one of these dose optimization te chniques: automated exposure control; mA and/or kV adjustment per patient size (includes targeted exa ms where dose is matched to clinical indication); or iterative reconstruction.
[2024-06-05 16:31] LABS: ALT 24 U/L (16-63); AST 34 U/L (15-37); Albumin 3.9 g/dL (3.4-5.0); Alkaline Phosphatase 64 U/L (46-116); Anion Gap 7.5 mmol/L (3-11); BUN 9 mg/dL (7-18); Bilirubin, Total 1.31 mg/dL (0.2-1.0); CO2 29.5 mmol/L (21.0-32.0); CREATININE 0.8 mg/dL (0.70-1.30); Calcium 8.7 mg/dL (8.5-10.1); Chloride 108 mmol/L (98-107); Estimated GFR 90.58 (mL/min/1.73m2); Glucose 93 mg/dL (74-106); Potassium 4.4 mmol/L (3.5-5.1); Sodium 145 mmol/L (136-145); Total Protein 6.5 g/dL (6.4-8.2)
--- NOTE | 2024-06-05 17:25 | ED.PROG_ITS ---
Date of service: 06/05/24 Time of Service: 17:25 Medical Decision Making This dictation utilizes [id number] dictation software and may contain unedited grammatical errors. Patient seen in sign-out from Wanda Curtis PA-C, please see her complete note. Essentially this 79 y/o M with dementia has presented with hematuria and dysuria, concern for renal stones, awaiting CT results and UA/CMP results. Patients' medical history: Alzheimer's, atrial fibrillation, cardiomyopathy, renal calculi. Family and social history: Noncontributory. Diagnostic studies of: -Pending studies of CT shows two L ureteral stones -CMP benign -UA without infection. Interventions of: -Consulted with Urology Dr. Lee, will d/c [facility], Urology office will contact patient to schedule stent tomorrow, starting Flomax outpatient Rx. ED Course/Assessment/Plan: 79-year-old male presents with dysuria and hematuria, he has 2 left ureteral stones, the UPJ stone is 6 mm and likely needs stenting, he has a distal UVJ stone that is 3 mm and will likely pass. I discussed the case with Dr. Lee, he wants him off his Eliquis until procedure, starting Flomax outpatient, patient and patient's verbalized understanding of the plan, return to ED criteria of any signs of infection, extreme worsening of pain especially with fever nausea. Findings not consistent with infected ureteral stone, UTI, sepsis, hemorrhage. Disposition of Left Ureteral Stone. Patient verbalized understanding of the plan and return to ED criteria and engaged in shared decision making. Medical Records Medical records reviewed: Yes I reviewed the patient's medical records. Imaging Data Radiologic Study: Attestation: I personally reviewed and interpreted this imaging study as follows: Imaging: CT Scan Radiologist's impression: EXAM: CT ABDOMEN PELVIS WO CLINICAL HISTORY: flank pain, hematuria, hx of prostate ca. TECHNIQUE: Imaging Protocol: Axial computed tomography images with coronal and sagittal reformatted images were created and reviewed CONTRAST MATERIAL: Intravenous: none Oral: None COMPARISON: CT CT ABDOMEN PELVIS WO/W from 09/07/2021 FINDINGS: VISUALIZED LUNG BASES: No nodules nor pleural effusions evident. ABDOMEN: There is no ascites. LIVER: There are no obvious focal hepatic lesions evident of this noninfused study. GALLBLADDER/BILIARY: No obvious gallbladder pathology. CBD is not dilated. PANCREAS: No evidence of pancreatic mass nor dilatation of the pancreatic duct. SPLEEN: Spleen is not enlarged. No obvious intrasplenic lesions. ADRENALS: There are no significant adrenal masses. KIDNEYS:Bilateral nephrolithiasis again noted with multiple calculi varying size in both kidneys. On the left side there is now a calculus lodged at the upper ureter UPJ level, this calculus measuring 6 x 4 mm. There is mild dilatation above this level. In addition there is wider than normal caliber of the left ureter below this level and there is another calculus seen at the left ureterovesical junction/bladder lumen measuring 3 mm. All of the radiopaque calculi on the opposite-right side are within the kidney and there are no significant focal findings in the right ureter. No other significant focal findings in the left kidney. There is uniformly hyperechoic nodule in the anterior cortex of the right kidney which measures 1.0 x 1.0 cm. This is probably hemorrhagic cyst. It was previously evident on 09/07/2021.. ABDOMINAL AORTA: Abdominal aorta is not enlarged. LYMPH NODES: There is no retroperitoneal nor paraaortic adenopathy. ABDOMINAL WALL: There is a fat only containing left inguinal hernia noted, unchanged from previous. GI: There is no evidence of bowel obstruction, free air, nor abscess. There is extensive sigmoid diverticulosis without evident 2 obvious diverticulitis. There also diverticuli in the descending-left colon distal to the splenic flexure. PELVIS: LYMPH NODES: There is no intrapelvic nor inguinal adenopathy. GI: No evidence of appendicitis.. URINARY BLADDER: Calculus at the left ureterovesical junction measuring 3 mm. REPRODUCTIVE: Prostate appears to be surgically absent. OSSEOUS: No significant osseous lesions. No fractures evident. IMPRESSION: 1. Extensive bilateral nephrolithiasis again noted. However, on the present study there 2 calculi in the left ureter. The larger calculus is in the upper left ureter at the ureteropelvic junction, this radiopaque calculus measuring 6 x 4 mm. There is a smaller calculus at the intra mural aspect of the left UVJ/bladder level. The entire left ureter is dilated. All the calculi on the opposite side are within the right kidney, without radiopaque calculi evident in the nondilated right ureter. 2. Extensive diverticulosis of the sigmoid as well as diverticulosis of the descending-left colon. However, there is no obvious evidence of acute diverticulitis. Also no evidence of appendicitis. 3. Left inguinal hernia which contains only fat and no bowel loops. 4. Prostate gland is surgically absent there is no intrapelvic lymphadenopathy evident. No obvious sclerotic bone lesions. Report called by myself to ER provider 06/05/2024 at 5:03 p.m. Lab Data Lab results reviewed: Yes I reviewed the patient's lab results. Labs: Laboratory Tests Range/Units 06/05/24 06/05/24 06/05/24 15:13 16:00 17:34 WBC (4.4-10.8) 10^3/uL 5.77 RBC (4.36-5.78) 10^6/uL 4.49 Hgb (13.5-17.5) g/dL 15.2 Hct (40.0-50.0) % 43.0 MCV (80-95) fL 96 H MCH (27.0-33.0) pg 33.9 H MCHC (32.0-36.0) % 35.3 RDW (11.8-14.1) % 12.3 Plt Count (130-400) 10^3/uL 150 MPV (8.0-11.0) fL 9.4 Immature Gran % % 0.7 Neutrophils % % 67.7 Lymphocytes % % 21.0 Monocytes % % 10.1 Eosinophils % % 0.2 Basophils % % 0.3 Nucleated RBC % (0.0-0.3) % 0.0 Absolute Neutrophils (1.2-6.7) 10^3/uL 3.91 Absolute Lymphocytes (1.2-3.4) 10^3/uL 1.21 Absolute Monocytes (0.1-0.8) 10^3/uL 0.58 Absolute Eosinophils (0.0-0.7) 10^3/uL 0.01 Absolute Basophils (0.0-0.2) 10^3/uL 0.02 Sodium Cancelled 145 Potassium Cancelled 4.4 Chloride Cancelled 108 H Carbon Dioxide Cancelled 29.5 Anion Gap Cancelled 7.5 BUN Cancelled 9 Creatinine Cancelled 0.8 Est GFR (CKD-EPI 2020) Cancelled 90.58 Glucose Cancelled 93 Calcium Cancelled 8.7 Total Bilirubin Cancelled 1.31 H AST Cancelled 34 ALT Cancelled 24 Alkaline Phosphatase Cancelled 64 Total Protein Cancelled 6.5 Albumin Cancelled 3.9 Urine Color (Yellow) Yellow Urine Clarity (Clear) Sl Cloudy Urine pH (5-8) 7.0 Ur Specific [place] (1.005-1.025) 1.025 Urine Protein (Neg-Trace) mg/dL 100 H Urine Ketones (Negative) mg/dL Negative Urine Blood (Negative) Large H Urine Nitrite (Negative) Negative Urine Bilirubin (Negative) Negative Urine Urobilinogen (Up to 0.2) mg/dL 0.2 Ur Leukocyte Esterase (Negative) Negative Urine RBC (0-2) HPF >50 H Urine WBC (0-5) HPF Negative Ur Epithelial Cells (Negative) HPF Rare Urine Crystals (Negative) HPF Negative Urine Bacteria (Negative) HPF Rare Urine Casts (Negative) LPF Negative Urine Mucus (Negative) Negative Ur Culture Indicated? No Urine Glucose (Negative) mg/dL Negative Quality:SDOH Health Related Social Needs: No Data to Display Discharge Plan Disposition Patient Disposition: Home Condition: Stable Discharge Details Clinical Impression: Left ureteral stone Primary Care Provider: Letty Damian ED Provider: Ketan Taylor Home Meds and New Rx's Prescriptions: New tamsulosin 0.4 mg capsule 0.4 mg PO DAILY Qty: 30 0RF Continued donepezil 10 mg tablet 10 mg PO QDAY Qty: 90 3RF fluticasone propionate [Allergy Relief (fluticasone)] 50 mcg/actuation spray,suspension 2 spray intranasal DAILY Qty: 16 3RF Rx Instructions: administer into each nostril buspirone 5 mg tablet 5 mg PO QHS Qty: 90 3RF metoprolol succinate 100 mg tablet extended release 24 hr 100 mg PO BID Qty: 180 3RF simvastatin 20 mg tablet 20 mg PO DAILY Qty: 90 3RF multivitamin 1 EACH capsule 1 ea PO DAILY Discontinued Eliquis 5 mg tablet 5 mg PO BID Qty: 180 3RF Discharge Instructions Instructions: Tamsulosin, Kidney Stone, Adult ED Additional Instructions: You were seen in the emergency department for your to left kidney stones that are stuck in your left ureter. One of them is 3 mm and should likely pass, the other is at the upper limit of normal that can pass at 6 mm. I spoke with our urology team and they will call you tomorrow to schedule procedure, you need to discontinue your Eliquis as this needs to be stopped prior to procedure for a number of days. I have sent a prescription for a medicine that dilates the urinary system called tamsulosin or Flomax. Please take this once daily. Please return to the emergency department for any urinary retention, extreme increase in abdominal or flank pain, fever, nausea, signs of blood loss with persistent blood in the urine like dizziness, paleness. Referrals: [facility] [Provider Group] Letty Damian NP [Primary Care Provider] -
[2024-06-05 17:52] LABS: Bilirubin Negative (Negative); Blood Large (Negative); Clarity Sl Cloudy (Clear); Glucose Negative (Negative); Ketones Negative (Negative); Leukocyte Esterase Negative (Negative); Nitrite Negative (Negative); Specific Gravity 1.025 (1.005-1.025); Urobilinogen 0.2 mg/dL (Up to 0.2)
[2024-06-05 17:58] LABS: Bacteria Rare HPF (Negative); C & S Indicated? No; Casts Negative LPF (Negative); Crystals Negative HPF (Negative); Epithelial Cells Rare HPF (Negative); Mucus Negative (Negative); RBC >50 HPF (0-2); WBC Negative HPF (0-5)
[2024-06-05] MEDS: Tamsulosin 0.4 MG CAPCR PO (18:38)
[2024-06-05 18:44] VITALS: BP 122/73; PULSE 82; RESP 18; TEMP 36.1; O2SAT 97
== END 2024-06-05 18:46 | disposition home or self-care (01) ==
PROVIDERS: Physician Assistant; Emergency Provider Physician Assistant; PCP Nurse Practitioner Family
DX: N20.2 Calculus of kidney with calculus of ureter (principal); G30.9 Alzheimer's disease, unspecified; F02.80 Dementia in other diseases classified elsewhere, unspecified severity, without behavioral disturbance, psychotic disturbance, mood disturbance, and anxiety; I10 Essential (primary) hypertension; E78.5 Hyperlipidemia, unspecified; Z79.01 Long term (current) use of anticoagulants
CPT/HCPCS: 00123; 36415; 80053; 99284; 74176; 81003; 81015; 85025

== ENCOUNTER → 2024-06-09 13:51 | Outpatient (BNVA) | payer MEDICARE, BC, SELFPAY | PROVIDERS: PCP Nurse Practitioner Family; Referring Provider Nurse Practitioner Family; Visit Provider Urology | DX: Z85.46 Personal history of malignant neoplasm of prostate (principal); N20.1 Calculus of ureter; N20.0 Calculus of kidney | CPT/HCPCS: 99204 ==

== ENCOUNTER 2024-06-16 07:25 | Day surgery (SDC) | payer MEDICARE, BC, SELFPAY ==
[2024-06-16] VITALS (17 sets, daily range): BP systolic 90–136; BP diastolic 57–80; PULSE 58–71; RESP 12–20; TEMP 36–36.4; O2SAT 90–99; BMI 23.8
[2024-06-16] MEDS: Lactated Ringers 1,000 ML 80 ML IV (08:03)
--- NOTE | 2024-06-16 08:23 | ANES.PREOP_ITS ---
General Info Date of Service Date Performed: 06/16/24 Height: 5 ft 7 in Weight: 69 kg Body Mass Index (BMI): 23.8 Surgical Procedure: Operation Date: 06/16/24 08:55 Proposed Procedure Side Surgeon p Cystoscopy/Possible Laser/Retrograde/Ureteroscopy Bilateral Juan Carlos Lee MD Actual Procedure Side Surgeon p Cystoscopy/Possible Laser/Retrograde/Ureteroscopy Bilateral Juan Carlos Lee MD Pre-Op Diagnosis Post-Op Diagnosis left ureteral stone left ureteral stone Meds Allergies and Home Medications Allergies Allergy/AdvReac Type Severity Reaction Status Date / Time No Known Allergies Allergy Verified 06/16/24 07:48 Home Medication ?Medication ?Instructions ?Recorded multivitamin 1 ea PO DAILY 11/18/12 metoprolol succinate 100 mg 100 mg PO BID #180 tabs 01/11/24 tablet,extended release 24 hr simvastatin 20 mg tablet 20 mg PO DAILY #90 tabs 01/11/24 donepezil 10 mg tablet 10 mg PO QDAY #90 tabs 03/13/24 fluticasone propionate 50 2 spray intranasal DAILY #16 grams 04/29/24 mcg/actuation nasal spray,suspension (Allergy Relief (fluticasone)) tamsulosin 0.4 mg capsule 0.4 mg PO DAILY ureteral stone #30 06/05/24 caps apixaban 5 mg tablet (Eliquis) 5 mg PO BID #180 tabs 06/06/24 buspirone 5 mg tablet 5 mg PO BID 06/13/24 Current Visit Medications: Current Medications Generic Name Dose Route Start Last Admin Trade Name Freq PRN Reason Stop Dose Admin Cefazolin Sodium/Dextrose 2 gm in 50 mls @ 100 mls/hr 06/16/24 06:00 Ancef Duplex IVPB 06/16/24 23:59 PREOP IRMA Ringer's Solution 1,000 mls @ 80 mls/hr 06/16/24 07:00 06/16/24 08:03 IV 07/16/24 06:59 80 mls/hr INFUSION IRMA Administration IV Miscellaneous Supplies 1 each 06/16/24 06:00 Iv Access IV 06/16/24 23:59 DIRECTED IRMA Sodium Chloride 0 ml 06/16/24 06:00 Normal Saline Flush 10 Ml Syr IV 06/16/24 23:59 PRN PRN Sodium Chloride 0 ml 06/16/24 06:00 Normal Saline 10 Ml Vial IJ 06/16/24 23:59 DIRECTED PRN Sterile Water 0 ml 06/16/24 06:00 Water,Injection,Sterile 10 Ml Vial IJ 06/16/24 23:59 DIRECTED PRN PFSH Active Problems Active Problems: Problem Status Onset Code Left ureteral stone Acute N20.1 Bilateral tinnitus Acute H93.13 Alzheimers disease Chronic G30.9, F02.80 Atrial fibrillation Chronic I48.91 Cardiomyopathy Chronic I42.9 Valvular heart disease Chronic I38 History of prostate cancer Chronic Z85.46 Hypertension Chronic I10 Hyperlipidemia Chronic E78.5 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 Arthritis of right hip Chronic M16.11 Arthritis of right knee Chronic M17.11 Diverticulosis of colon Chronic K57.30 Atopic dermatitis Chronic L20.9 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 Medical History Medical History 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 Renal calculi Diverticulitis large intestine Asthma Malignant tumor of prostate Surgical History Surgical History S/P left knee arthroscopy Hx of vitrectomy Right eye Hx of cataract surgery History of reverse total replacement of right shoulder joint (12/22/21) Status post tonsillectomy Status post colonoscopy H/O prostatectomy (~2008) Tobacco Smoking/Tobacco Use Status: Never Passive smoking exposure: Yes Second hand exposure: Yes Alcohol Alcohol Intake: current Alcohol intake frequency: a few times a week Alcohol type: beer, wine and hard liquor Substance Use Substance use: Never Substance use type: does not use Vital Signs and Lab Results Vital Signs Most Recent Vital Signs in EMR: Most Recent Vital Signs Temp Pulse Resp BP Pulse Ox 36.4 C L 71 18 101/78 99 06/16/24 07:51 06/16/24 07:51 06/16/24 07:51 06/16/24 07:51 06/16/24 07:51 Lab Results Blood Type / Crossmatch: No Data to Display Complete Blood Count: White Blood Count 5.77 10^3/uL (4.4-10.8) 06/05/24 15:13 Red Blood Count 4.49 10^6/uL (4.36-5.78) 06/05/24 15:13 Hemoglobin 15.2 g/dL (13.5-17.5) 06/05/24 15:13 Hematocrit 43.0 % (40.0-50.0) 06/05/24 15:13 Platelet Count 150 10^3/uL (130-400) 06/05/24 15:13 Complete Metabolic Panel: Sodium 145 mmol/L (136-145) 06/05/24 16:00 Potassium 4.4 mmol/L (3.5-5.1) 06/05/24 16:00 Chloride 108 mmol/L (98-107) H 06/05/24 16:00 Carbon Dioxide 29.5 mmol/L (21.0-32.0) 06/05/24 16:00 BUN 9 mg/dL (7-18) 06/05/24 16:00 Creatinine 0.8 mg/dL (0.70-1.30) 06/05/24 16:00 Est GFR (CKD-EPI 2020) 90.58 (mL/min/1.73m2) 06/05/24 16:00 Calcium 8.7 mg/dL (8.5-10.1) 06/05/24 16:00 Albumin 3.9 g/dL (3.4-5.0) 06/05/24 16:00 Glucose 93 mg/dL (74-106) 06/05/24 16:00 Liver Function Panel: Alanine Aminotransferase (ALT/SGPT) 24 U/L (16-63) 06/05/24 16: 00 Aspartate Amino Transf (AST/SGOT) 34 U/L (15-37) 06/05/24 16:00 Coagulation Panel: No Data to Display Cardiac Panel: No Data to Display Arterial Blood Gas: No Data to Display Venous Blood Gas: No Data to Display Pancreas Panel: No Data to Display Thyroid Panel: No Data to Display Infectious Disease: No Data to Display Blood Cultures: No Data to Display Toxicology Panel: No Data to Display Imaging and Studies Imaging and Studies Study information below may be from another EMR and interpreted by another provider. Please see original notes in EMR for more complete details. EKG Summary: 04/24/23: Exam: Resting ECG Reason for Exam: afib Patient Location: O HR:83 bpm ECG Measurements Heart Rate 83 AXIS TX [id number] P [id number] QRSd 162 QRS -53 QT 398 T-37 QTc 468 Conclusion Atrial fibrillation...? atrial activity RBBB and LAFB...QRSd >120mS, axis(-40,240) Echocardiogram Summary: 05/09/24: Conclusion Normal left ventricular thickness and chamber size. Ejection fraction is 40%. Wall motion is normal Mildly dilated right ventricle Both atria are moderately enlarged Trileaflet aortic valve with trace regurgitation Normal mitral valve with moderate regurgitation Normal tricuspid valve with moderate regurgitation. Estimated right ventricular systolic pressure is 25 mmHg Ascending aorta measures 3.7 cm Overall LV function is similar to multiple previous Anesthesia Assessment and Plan Anesthesia History Personal History: No History of Anesthesia Complications Family History: No Family History of Anesthesia Complications Exercise Tolerance Exercise Tolerance: Metabolic Equivalents>4 Cardiac & Pulmonary Exam Cardiac Exam: Heart Murmur Present Pulmonary Exam: Clear Bilateral Breath Sounds Implantable Cardiac Device Does patient have a Pacemaker or an ICD?: No Airway Exam Known Difficult Airway: No Mallampati Class: 1 Mouth Opening: Normal (> 3cm) Thyromental Distance: Greater than 3 cm Neck Range of Motion: Full ROM Neck Circumference: Normal Teeth Condition: Normal Dentition Airway Comments: Top front tooth broken left back top broken ASA Classification ASA Score: ASA 3 Emergency Case?: No NPO Status NPO Status: NPO Clears >2 hours, Solids >8 hours Anesthesia Plan Resuscitation Status: Full Code Anesthesia Technique: General Anesthesia Airway Planned: Natural Airway Monitors Used: Standard Monitors and SedLine Preoperative Comments:: Patient has significant memory deficits and answered majority of questions. Patient is unsure if the stones have passed. Per Dr. Lee plan to start with light anesthetic to assess the stones and will convert to GA/LMA if necessary.
--- NOTE | 2024-06-16 08:43 | HPE_ITS ---
Date of service: 06/16/24 Time of Service: 09:06 Assessment and Plan Assessment and plan (1) Left ureteral stone: Status: Acute Assessment and plan: With his dementia, were not certain if he has passed a stones or not. We we will plan on doing a cystoscopy to complete his hematuria workup. We would do a retrograde pyelogram and if we identify any remaining ureteral stones, we will perform ureteroscopy and treatment of his stones. History of Present Illness History of Present Illness Chief Complaint: Hematuria Narrative: This is a 79-year-old gentleman who has been under the care of Dr. Mcknight for many years. The patient has a history of prostate cancer and was treated with a radical prostatectomy. He has not had any sign of tumor recurrence. He has never required pelvic radiation. He also has a long history of kidney stones. He has not had any episodes of renal colic for 30 or 40 years until he recently presented to the emergency department. At that time, he was having pain and dry heaves. He had grossly bloody urine. He had no fever or chills. He may have had surgical procedures for kidney stones in the past, but I do not have records regarding the type of surgery or type of stone retrieved. While in the emergency department, he had a CT scan which demonstrated multiple stones in both kidneys and to left sided ureteral stones. He stopped his Eliquis and he is no longer having gross hematuria, but he does have some persistent back discomfort. He no longer has nausea or vomiting. Review of Systems Narrative: No fevers or chills Decreased hearing acuity. No vision change or dysphasia No diabetes or thyroid No shortness of breath, cough or hemoptysis No chest pain or palpitations No nausea, vomiting, hepatitis, ulcers, jaundice, diarrhea or constipation Dementia. No seizures, strokes or peripheral neuropathy No bleeding disorders or anemia Arthralgia. No gout PFSH All Active Problems Left ureteral stone (Acute) Bilateral tinnitus (Acute) Alzheimers disease (Chronic) [facility] Neurology Atrial fibrillation (Chronic) Cardioversion 2017. [facility] Cardiology Cardiomyopathy (Chronic) 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 Son Asthma Maternal Grandfather , 61 Heart disease Diabetes Maternal Grandmother , 86 No problems noted. Paternal Grandfather Heart disease Paternal Grandmother No problems noted. Daughter No problems noted. 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 Pets and animals: No Sexually active: No Do you think of yourself as: straight/heterosexual Current gender identity: male What is your relationship status?: How often do you talk on the phone with friends or family?: once per week How often do you get together with friends or relatives?: once per week How often do you attend mosque or baptism services?: decline to answer Do you belong to any clubs or organized social groups?: no Panel score (0-1 are the most socially isolated patients): 1 What type of physical activity do you participate in: other Details: House work Duration: 15-30 minutes/day Frequency: 3-4 times per week Eloise/Buddhism: Non uatsdin Special eloise needs: No Seatbelt use: always Helmet use: No Drive intox or ride w/intox canal driver: No Do you feel safe at home: Yes Do you feel safe in your relationship?: Yes Victim of physical abuse: No Victim of emotional abuse: No Victim of sexual abuse: No Would you like helpful sources: No Additional Social history: [facility] Meds Allergies and Home Medications Allergies Allergy/AdvReac Type Severity Reaction Status Date / Time No Known Allergies Allergy Verified 06/16/24 07:48 Home Medications ?Medication ?Instructions ?Recorded ?Confirmed ?Type multivitamin 1 ea PO DAILY 11/18/12 06/16/24 History metoprolol succinate 100 mg 100 mg PO BID #180 tabs 01/11/24 06/16/24 Rx tablet,extended release 24 hr simvastatin 20 mg tablet 20 mg PO DAILY #90 tabs 01/11/24 06/16/24 Rx donepezil 10 mg tablet 10 mg PO QDAY #90 tabs 03/13/24 06/16/24 Rx fluticasone propionate 50 2 spray intranasal DAILY #16 grams 04/29/24 06/16/24 Rx mcg/actuation nasal spray,suspension (Allergy Relief (fluticasone)) tamsulosin 0.4 mg capsule 0.4 mg PO DAILY ureteral stone #30 06/05/24 06/16/24 Rx caps apixaban 5 mg tablet (Eliquis) 5 mg PO BID #180 tabs 06/06/24 06/13/24 Rx buspirone 5 mg tablet 5 mg PO BID 06/13/24 06/16/24 History Exam Const General: cooperative Orientation: confused Neck Neck: supple Resp Effort & Inspection: normal respiratory effort Auscultation: clear to auscultation bilaterally Cardio Rate: regular rate Rhythm: regular rhythm GI Palpation: soft and no masses Neuro General: patient alert and patient awake Results Last Vital Signs Temp 36.4 C L 06/16/24 07:51 Pulse 71 06/16/24 07:51 Resp 18 06/16/24 07:51 BP 101/78 06/16/24 07:51 Pulse Ox 99 06/16/24 07:51 Time Spent Time spent with Patient: <40 minutes Time was spent: other
[2024-06-16] MEDS: ceFAZolin 2 GM/50 ML BAG IVPB (09:12)
[2024-06-16] MEDS: Lidocaine 2% Jelly 6 ML SYR (09:48)
--- NOTE | 2024-06-16 10:00 | W.PM.DSUDISC ---
Date of service: 06/16/24 Discharge Plan Disposition Patient Disposition: Home Discharge Details Reason For Visit: remove ureteral stone Attending Provider: Juan Carlos Lee Primary Care Provider: Letty Damian Home Meds and New Rx's Prescriptions: No Action Eliquis 5 mg tablet 5 mg PO BID Qty: 180 3RF donepezil 10 mg tablet 10 mg PO QDAY Qty: 90 3RF fluticasone propionate [Allergy Relief (fluticasone)] 50 mcg/actuation spray,suspension 2 spray intranasal DAILY Qty: 16 3RF Rx Instructions: administer into each nostril metoprolol succinate 100 mg tablet extended release 24 hr 100 mg PO BID Qty: 180 3RF simvastatin 20 mg tablet 20 mg PO DAILY Qty: 90 3RF multivitamin 1 EACH capsule 1 ea PO DAILY tamsulosin 0.4 mg capsule 0.4 mg PO DAILY Qty: 30 0RF buspirone 5 mg tablet 5 mg PO BID Discharge Instructions Additional Instructions: may restart Eliquis 06/19/2024 as long as no blood is visible in urine followup appt 1 to 2 weeks for cystoscopy and stent removal in office Discharge Orders Discharge Orders: Discharge Order (Routine); Ordered 06/16/24 Ordered By: Juan Carlos Lee DS: Diagnosis Discharge Diagnosis (1) Left ureteral stone: Status: Acute
--- NOTE | 2024-06-16 10:03 | W.PM.OP ---
Operative Note Operative Note PRE-OP DIAGNOSIS: Hematuria POST-OP DIAGNOSIS: same Left ureteral stone PROCEDURE: cystoscopy, transurethral incision of left ureteral orifice, left ureteral stone extraction, left retrograde pyelogram, insert left ureteral orifice SURGEON: Juan Carlos Lee ANESTHESIA TYPE: Local By Surgeon and General:No Airway Refer to Anesthesia Record ESTIMATED BLOOD LOSS: 5 PATHOLOGY: other (left ureteral stone for chemical analysis) COMPLICATIONS: None Patient was transported to: PACU Patient's condition: stable Implants: 6 Mongolian by 22 to 30 cm left ureteral orifice Indications: This is a 79-year-old gentleman who has a history of atrial fibrillation and cardiomyopathy. He is on chronic anticoagulants. He presented to the emergency department with gross hematuria and flank pain. He was found to have a very small left distal ureteral stone and a larger more proximal ureteral stone on the left. He has safely discontinued his anticoagulants and he presents now for stone manipulation. In the past, he had an abnormality in the bladder that was identified cystoscopically. The area was not biopsied and a follow-up cystoscopy was planned but never accomplished. We will be prepared to do transurethral resection of a bladder tumor should we identify one. Findings: no bladder tumor stone at left ureteral orifice Procedure Description: The patient was given preoperative antibiotics and brought to the operating room on 06/16/2024. After successful induction of general anesthesia, he was placed in the supine position his genitalia was prepped and draped. 2% Xylocaine jelly was instilled into the urethra to act as a local anesthetic. A 22 Mongolian rigid cystoscope was passed through the urethra into the bladder. The urethra and bladder were inspected with the 30 degree lens. The pendulous, bulbar and membranous urethra appeared normal with no strictures. The prostatic urethra showed no active bleeding and no papillary mucosa. The bladder neck was entered and the bladder mucosa was inspected. The right ureteral orifice appeared completely normal. The left orifice was edematous and a black-colored stone could be seen just at the orifice. The remainder of the bladder showed no papillary or nodular lesions. Initially, I attempted to pass a Mendy stone basket into the left ureteral orifice but I was not successful. I then removed the cystoscope and passed a 24 Mongolian resectoscope sheath through the urethra into the bladder. I used a needle tip electrode to incise the anterior aspect of the ureteral orifice. I was then able to gain access to the stone and remove it in its entirety. The stone was sent to pathology for permanent section. I removed the resectoscope and replaced the cystoscope. I was then able to cannulate the left ureteral orifice and perform retrograde pyelogram. I injected Omnipaque through the access catheter under fluoroscopic guidance. The entire ureter was dilated down to the ureteral orifice. No additional filling defects were seen in the ureter. Because of the degree of dilation, we decided to place a ureteral stent. I chose a 6 Mongolian variable length stent. I passed a guidewire through the lumen of the access catheter and removed the catheter leaving the wire in place. The stent was then advanced over the wire and positioned such that the proximal end was curled in the renal pelvis and the distal end was curled within the bladder. The positioning of the stent was confirmed both fluoroscopically and cystoscopically. The patient tolerated the procedure well with no complications. Date of Procedure: 06/16/24
--- NOTE | 2024-06-16 10:05 | DI.RAD_ITS ---
Exam(s) XR RETROGRADE IN OR EXAM: XR RETROGRADE IN OR CLINICAL HISTORY: left ureteral stone. TECHNIQUE: Fluoroscopy was provided for the referring physician for guidance with performing retrogr chun procedure. COMPARISON: No exams were available for comparison FINDINGS: Please see procedure note for details. Fluoro time: 15.9 seconds RADIATION DOSE DELIVERED: joel Moseley=2.58 mGy
[2024-06-16] MEDS: Omnipaque 300 MG/ML 50 ML BTL (10:10)
--- NOTE | 2024-06-16 11:04 | W.ANESPOSTOP ---
Postoperative Evaluation Date, Time and Location Date Performed: 06/16/24 Time Performed: 10:52 Patient Location: Day Surgery Unit Vital Signs Most Recent Imported Vital Signs: Most Recent Vital Signs Temp Pulse Resp BP Pulse Ox 36.4 C L 70 20 136/80 99 06/16/24 10:51 06/16/24 10:51 06/16/24 10:51 06/16/24 10:51 06/16/24 10:51 Pain Score Most Recent Pain Score: Most Recent Pain Score Pain Level 0 06/16/24 10:19 Assessment Mental Status: Awake (Alert & Oriented to Patient Baseline) Airway and Respiratory Function: Patent airway with normal (patient baseline) respiratory exam Cardiovascular Function: Hemodynamically Stable Hydration Status: Adequately Hydrated Nausea & Vomiting: No Nausea or Vomiting Pain: Pt. Denies Any Pain Peripheral Nerve Block: Patient did not receive a nerve block
[2024-06-21 11:03] LABS: Source: Left Ureter
== END 2024-06-16 11:33 | disposition home or self-care (01) ==
PROVIDERS: PCP Nurse Practitioner Family; Visit Provider Urology
PROC: (CPT 52352; principal; 2024-06-16 08:45)
DX: N20.1 Calculus of ureter (principal); I10 Essential (primary) hypertension; E78.5 Hyperlipidemia, unspecified; H90.3 Sensorineural hearing loss, bilateral; G30.9 Alzheimer's disease, unspecified; F02.80 Dementia in other diseases classified elsewhere, unspecified severity, without behavioral disturbance, psychotic disturbance, mood disturbance, and anxiety; I48.91 Unspecified atrial fibrillation; I42.9 Cardiomyopathy, unspecified
CPT/HCPCS: 52352; 52332; 74420; 82365; J0690; J1100; J1885; J2405; J2704; Q9967

== ENCOUNTER → 2024-08-01 10:34 | Outpatient (BNVA) | payer MEDICARE, BC, SELFPAY | PROVIDERS: PCP Nurse Practitioner Family; Referring Provider Nurse Practitioner Family; Visit Provider Urology | DX: N20.0 Calculus of kidney (principal) | CPT/HCPCS: 52000 ==

== ENCOUNTER → 2024-09-12 09:28 | Outpatient (BNVA) | payer MEDICARE, BC, SELFPAY | PROVIDERS: PCP Nurse Practitioner Family; Referring Provider Nurse Practitioner Family; Visit Provider Urology | DX: N20.0 Calculus of kidney (principal); Z48.816 Encounter for surgical aftercare following surgery on the genitourinary system | CPT/HCPCS: 76775 ==

== ENCOUNTER 2024-10-14 14:43 | Outpatient (CLI) | payer MEDICARE, BC, SELFPAY ==
--- NOTE | 2024-10-14 13:00 | DI.RAD_ITS ---
Exam(s) XR SHOULDER RT COMPLETE 2+V EXAM: XR SHOULDER RT COMPLETE 2+V CLINICAL HISTORY: RIGHT SHOULDER PAIN. TECHNIQUE: 2D digital imaging was performed. Three views. COMPARISON: CR XR SHOULDER RT COMPLETE 2+V from 06/26/2023 FINDINGS: BONES: Stable alignment of shoulder prosthesis. No abnormal surrounding lucencies. No bony destruct anushka lesion is seen. JOINTS: No dislocation present. SOFT TISSUE: Normal. IMPRESSION: Stable appearance of shoulder prosthesis. DATA REPOSITORY: RADIATION DOSE DELIVERED:
== END 2024-10-14 14:44 | disposition home or self-care (01) ==
LOC: DIORS 14:43
PROVIDERS: PCP Nurse Practitioner Family; Referring Provider Nurse Practitioner Family; Visit Provider Student in an Organized Health Care Education/Training Program
DX: Z98.890 Other specified postprocedural states (principal); Z47.1 Aftercare following joint replacement surgery; Z96.611 Presence of right artificial shoulder joint; G56.01 Carpal tunnel syndrome, right upper limb
CPT/HCPCS: 99214; 73030

== ENCOUNTER 2024-12-08 18:28 | Outpatient (REF) | payer MEDICARE, BC, SELFPAY ==
[2024-12-08 21:35] LABS: Abs Immature Grans 0.04 10^3/uL (0.0-0.06); Absolute Basophil Count 0.02 10^3/uL (0.0-0.2); Absolute Lymphocyte Count 1.44 10^3/uL (1.2-3.4); Absolute Monocyte Count 0.74 10^3/uL (0.1-0.8); Basophils % 0.3 %; Eosinophils % 3.4 %; HGB 14.6 g/dL (13.5-17.5); Immature Grans % 0.7 %; Lymphocytes % 24.7 %; MCH 33.3 pg (27.0-33.0); MCHC 34.8 % (32.0-36.0); MCV 96 fL (80-95); MPV 10.1 fL (8.0-11.0); Monocytes % 12.7 %; Neutrophils % 58.2 %; Platelet Count 150 10^3/uL (130-400); RBC 4.38 10^6/uL (4.36-5.78); RDW 12.6 % (11.8-14.1); RDW-SD 44.5 fL; WBC 5.84 10^3/uL (4.4-10.8)
[2024-12-08 21:37] LABS: Bilirubin Negative (Negative); Blood Moderate (Negative); Clarity Clear (Clear); Glucose Negative (Negative); Ketones Negative (Negative); Leukocyte Esterase Negative (Negative); Nitrite Negative (Negative); Specific Gravity 1.025 (1.005-1.025); pH 5.5 (5-8)
[2024-12-08 21:55] LABS: Bacteria Rare HPF (Negative); C & S Indicated? No; Casts Negative LPF (Negative); Crystals Negative HPF (Negative); Epithelial Cells Rare HPF (Negative); Mucus Trace (Negative); Other Cells Rare Transitional (Negative); WBC 0-2 HPF (0-5)
[2024-12-08 21:58] LABS: ALT 28 U/L (16-63); AST 15 U/L (15-37); Albumin 4.3 g/dL (3.4-5.0); Alkaline Phosphatase 62 U/L (46-116); Anion Gap 4.2 mmol/L (3-11); BUN 20 mg/dL (7-18); Bilirubin, Total 1.6 mg/dL (0.2-1.0); CO2 30.8 mmol/L (21.0-32.0); CREATININE 0.9 mg/dL (0.70-1.30); Calcium 9.2 mg/dL (8.5-10.1); Chloride 103 mmol/L (98-107); Estimated GFR 87.42 (mL/min/1.73m2); Glucose 97 mg/dL (74-106); Potassium 3.8 mmol/L (3.5-5.1); Sodium 138 mmol/L (136-145); TSH (W/Ref FT4) 1.96 uIU/mL (0.36-3.74); Total Protein 6.6 g/dL (6.4-8.2)
[2024-12-10 13:54] LABS: Lyme Ab w Rflx to Lyme Confirm Negative (Negative)
[2024-12-12 09:22] LABS: Anaplasma phagocytophilum Negative (Negative); B. miyamotoi PCR Negative (Negative); Babesia divergens/MO-1 Negative (Negative); Babesia duncani Negative (Negative); Babesia microti Negative (Negative); Ehrlichia chaffeensis Negative (Negative); Ehrlichia ewingii/canis Negative (Negative); Ehrlichia muris eauclairensis Negative (Negative)
== END 2024-12-08 18:29 | disposition home or self-care (01) ==
LOC: LBN 18:28
PROVIDERS: PCP Nurse Practitioner Family; Visit Provider Nurse Practitioner Family
DX: R41.0 Disorientation, unspecified (principal); R40.0 Somnolence; S30.860A Insect bite (nonvenomous) of lower back and pelvis, initial encounter; W57.XXXA Bitten or stung by nonvenomous insect and other nonvenomous arthropods, initial encounter; R53.83 Other fatigue; G30.9 Alzheimer's disease, unspecified; F02.80 Dementia in other diseases classified elsewhere, unspecified severity, without behavioral disturbance, psychotic disturbance, mood disturbance, and anxiety
CPT/HCPCS: 80053; 87798; 81003; 81015; 84443; 85025; 86618

== ENCOUNTER 2025-01-07 02:03 | Outpatient (CLI) | payer MEDICARE, BC, SELFPAY ==
--- NOTE | 2025-01-07 08:30 | DI.US_ITS ---
Exam(s) US RENAL EXAM: US RENAL CLINICAL HISTORY: hematuria, HX OF PROSTATE CANCER, RENAL CALCULI Z85.46, N20.0. TECHNIQUE: Dodd scale, color and spectral Doppler were used. COMPARISON: CT CT ABDOMEN PELVIS WO from 06/05/2024 FINDINGS: Renal size in cm: Right: 11.7. Left: 10.8. Echogenicity: Normal. Hydronephrosis: There is mild prominence of the right renal collecting system. Cyst or mass: No. Nephrolithiasis: There are bilateral renal stones. The largest on the right measures 1.5 cm and is located in the superior pole. The largest on the left also measures 1.5 cm and is located in the superior pole. Other findings: None. Bladder:Normal. Ureteral jets: Right: Visualized and unremarkable. Left: Visualized and unremarkable. Prevoid vol:26 cc Postvoid vol:0 cc Renal color flow: Symmetric and within normal limits. IMPRESSION: Bilateral nephrolithiasis. Mild right hydronephrosis. If further imaging is warranted, a CT scan should be considered. DATA REPOSITORY:
== END 2025-01-07 02:23 ==
LOC: DI 02:03
PROVIDERS: PCP Nurse Practitioner Family; Visit Provider Urology
DX: N20.0 Calculus of kidney (principal); Z85.46 Personal history of malignant neoplasm of prostate
CPT/HCPCS: 76770

== ENCOUNTER → 2025-01-09 10:12 | Outpatient (BNVA) | payer MEDICARE, BC, SELFPAY | PROVIDERS: PCP Nurse Practitioner Family; Referring Provider Nurse Practitioner Family; Visit Provider Urology | DX: N20.0 Calculus of kidney (principal); Z85.46 Personal history of malignant neoplasm of prostate; R53.83 Other fatigue | CPT/HCPCS: 99213 ==

== ENCOUNTER 2025-04-21 07:49 | Outpatient (CLI) | payer MEDICARE, BC, SELFPAY ==
--- NOTE | 2025-04-21 07:45 | RT.EKG_ITS ---
APPROVED REPORT Exam: Resting ECG Reason for Exam: afib Patient Location: O HR:84 bpm ECG Measurements Heart Rate 84 AXIS [place] [id number] P [id number] QRSd 164 QRS -53 QT 427 T -37 QTc 505 Conclusion Atrial fibrillation...V-rate 66-103, irreg A-activity RBBB and LAFB...QRSd >120mS, axis(-40,240)
== END 2025-04-21 07:50 | disposition home or self-care (01) ==
LOC: DI.CARD 07:50
PROVIDERS: PCP Nurse Practitioner Family; Visit Provider Internal Medicine Cardiovascular Disease
DX: I48.21 Permanent atrial fibrillation (principal); I45.10 Unspecified right bundle-branch block; I44.4 Left anterior fascicular block
CPT/HCPCS: 93010

== ENCOUNTER → 2025-04-21 10:51 | Outpatient (BNVA) | payer MEDICARE, BC, SELFPAY | PROVIDERS: PCP Nurse Practitioner Family; Referring Provider Nurse Practitioner Family; Visit Provider Internal Medicine Cardiovascular Disease | DX: I48.91 Unspecified atrial fibrillation (principal); E78.5 Hyperlipidemia, unspecified; I42.9 Cardiomyopathy, unspecified; Z79.01 Long term (current) use of anticoagulants | CPT/HCPCS: 99213; 93005 ==

== ENCOUNTER 2025-05-27 00:59 | Outpatient (CLI) | payer MEDICARE, BC, SELFPAY ==
[2025-05-27 17:07] LABS: Cholesterol 140 mg/dL (<200); HDL Cholesterol 50 mg/dL (>40)
== END 2025-05-27 01:00 | disposition home or self-care (01) ==
LOC: LOS 00:59
PROVIDERS: PCP Nurse Practitioner Family; Visit Provider Internal Medicine Cardiovascular Disease
DX: E78.5 Hyperlipidemia, unspecified (principal)
CPT/HCPCS: 36415; 80061